=== PATIENT | male | born 1960 | race Caucasian/White ===

== ENCOUNTER → 2017-12-15 12:54 | Outpatient (CLI) | payer OTHER, SELFPAY ==
[2017-12-15 13:54] LABS: AST(SGOT) 22 U/L (15-37); Alanine Aminotransfer ALT/SGPT 31 U/L (16-61); Albumin, Serum 3.8 g/dL (3.2-5.0); Alkaline Phosphatase 67 U/L (45-117); Bilirubin, Direct 0.17 mg/dL (0.00-0.30); Cholesterol 207 mg/dL (200); Globulin 3.8 g/dL (2.2-4.2); High Density Lipoprotein 51 mg/dL; Protein, Total 7.6 g/dL (6.4-8.2); Triglycerides 136 mg/dL; Very Low Density Lipoprotein 27 mg/dL (5-40)
== END ==
PROVIDERS: Family Provider Family Medicine; PCP Family Medicine; Visit Provider Physician Assistant Medical
DX: E78.5 Hyperlipidemia, unspecified (principal); Z79.899 Other long term (current) drug therapy
CPT/HCPCS: 36415; 80061; 80076

== ENCOUNTER → 2018-03-04 07:41 | Outpatient (CLI) | payer OTHER, SELFPAY ==
[2018-03-04 08:22] LABS: AST(SGOT) 25 U/L (15-37); Alanine Aminotransfer ALT/SGPT 47 U/L (16-61); Albumin, Serum 3.7 g/dL (3.2-5.0); Alkaline Phosphatase 74 U/L (45-117); Bilirubin, Direct 0.26 mg/dL (0.00-0.30); Cholesterol 180 mg/dL (200); Globulin 3.7 g/dL (2.2-4.2); High Density Lipoprotein 46 mg/dL; Protein, Total 7.4 g/dL (6.4-8.2); Triglycerides 223 mg/dL; Very Low Density Lipoprotein 45 mg/dL (5-40)
== END ==
PROVIDERS: Family Provider Family Medicine; PCP Family Medicine; Referring Provider Internal Medicine Cardiovascular Disease; Visit Provider Internal Medicine Cardiovascular Disease
DX: E78.5 Hyperlipidemia, unspecified (principal)
CPT/HCPCS: 36415; 80061; 80076

== ENCOUNTER → 2018-05-11 07:35 | Outpatient (CLI) | payer OTHER, SELFPAY ==
[2017-12-17 16:14] VITALS: BMI 26.6
[2018-05-11 07:59] LABS: Hematocrit 47.9 % (40-54); Hemoglobin 16.4 g/dl (13.0-16.5); Mean Corp Hgb Conc 34.2 g/gl (32-36); Mean Corpuscular Hgb 29.2 pg (27.0-32.0); Mean Corpuscular Volume 85.4 fL (80-94); Mean Platelet Vol. 9.3 fl (6.2-12.0); Platelet Count 261 K/mm3 (150-450); RBC Distribution Width CV 12.7 % (11.6-14.6); RBC Distribution Width SD 39.4 fl (35.1-43.9); Red Blood Count 5.61 M/mm3 (4.6-6.2); White Blood Count 6.7 K/mm3 (4.4-11.0)
[2018-05-11 08:00] LABS: Scan Indicated on CBC? Y/N NO
[2018-05-11 08:20] LABS: ALB/GLOB Ratio 0.9 RATIO (0.9-2.4); AST(SGOT) 26 U/L (15-37); Alanine Aminotransfer ALT/SGPT 40 U/L (16-61); Albumin, Serum 3.7 g/dL (3.2-5.0); Alkaline Phosphatase 80 U/L (45-117); Anion Gap 7 (5-15); BUN 19 mg/dL (7-18); BUN/Creat Ratio 15.3 RATIO (10-20); Calcium,Total 8.9 mg/dL (8.5-10.1); Chloride 107 mmol/L (98-107); Cholesterol 215 mg/dL (200); Creatinine, Serum 1.24 mg/dL (0.70-1.30); EST Glomerular Filtration Rate 63 mL/min (>60); Est Glom Filt Rate - Afr Amer 77 mL/min (>60); Glucose 102 mg/dL (74-106); High Density Lipoprotein 48 mg/dL; Potassium 4.1 mmol/L (3.5-5.1); Protein, Total 7.7 g/dL (6.4-8.2); Sodium Level 142 mmol/L (136-145); Triglycerides 165 mg/dL; Very Low Density Lipoprotein 33 mg/dL (5-40)
== END ==
PROVIDERS: Family Provider Family Medicine; PCP Family Medicine; Referring Provider Nurse Practitioner Family; Visit Provider Nurse Practitioner Family
DX: I25.10 Atherosclerotic heart disease of native coronary artery without angina pectoris (principal); Z13.1 Encounter for screening for diabetes mellitus; Z13.220 Encounter for screening for lipoid disorders
CPT/HCPCS: 36415; 80053; 80061; 85027

== ENCOUNTER → 2019-01-21 | Outpatient (CLI) | payer OTHER, SELFPAY ==
[2017-12-17 16:14] VITALS: BMI 26.6
[2019-01-21 08:46] LABS: AST(SGOT) 24 U/L (15-37); Alanine Aminotransfer ALT/SGPT 39 U/L (16-61); Albumin, Serum 3.6 g/dL (3.2-5.0); Alkaline Phosphatase 75 U/L (45-117); Bilirubin, Direct 0.23 mg/dL (0.00-0.30); Cholesterol 197 mg/dL (200); Globulin 3.9 g/dL (2.2-4.2); High Density Lipoprotein 51 mg/dL; Protein, Total 7.5 g/dL (6.4-8.2); Triglycerides 148 mg/dL; Very Low Density Lipoprotein 30 mg/dL (5-40)
== END | disposition home or self-care (01) ==
LOC: LAB 07:33
PROVIDERS: Family Provider Family Medicine; PCP Family Medicine; Referring Provider Internal Medicine Cardiovascular Disease; Visit Provider Internal Medicine Cardiovascular Disease
DX: E78.5 Hyperlipidemia, unspecified (principal)
CPT/HCPCS: 36415; 80061; 80076

== ENCOUNTER → 2019-02-09 | Outpatient (CLI) | payer OTHER, SELFPAY ==
[2019-01-25 14:20] VITALS: BMI 26.9
--- NOTE | 2019-02-09 09:40 | ECHOD_ITS ---
Reason For Study: CAD/ASHD Procedure This was a 2D Doppler, Color Flow transthoracic echocardiogram. The study was technically difficult. Exam performed in department. Left Ventricle Normal LV size. Segmental dysfunction with preserved ejection fraction (see wall motion). The estimated ejection fraction is 55 %. No evidence for diastolic dysfunction. Mid-Inferior: Hypokinetic. Mid-inferoseptal : Hypokinetic. Mid-anteroseptal : Hypokinetic. Inferior [place] : Hypokinetic. Septal [place] : Hypokinetic. Right Ventricle Normal RV size. Normal systolic function. Atria The left atrium is mildly enlarged. Normal right atrium. No doppler evidence for ASD. Mitral Valve There is no mitral annular calcification. Mild diffuse mitral valve thickening. Mild (1+) mitral valve insufficiency. Tricuspid Valve Normal tricuspid valve. Mild to moderate (1-2+) tricuspid valve insufficiency. Right ventricular systolic pressure estimated to be 27 mmHg. Aortic Valve Trisinus/trileaflet aortic valve. Normal aortic valve. Pulmonic Valve The pulmonic valve is not well visualized. Trivial pulmonic valve insufficiency. Great Vessels Normal sized aortic root. Pericardium/Pleural No pericardial effusion. MMode/2D Measurements & Calculations LVIDd: 4.3 cm IVSd: 1.3 cm Ao root diam: 3.3 cm LVIDs: 3.6 cm LVPWd: 1.1 cm LA dimension: 4.5 cm RVDd: 3.7 cm FS: 17.2 % LAV(MOD-bp): 47.7 ml LA A4 area: 16.5 cm2 RA A4 area: 12.7 cm2 LAV(MOD-bp) Indexed: 24.7 ml/m2 LAV(MOD-sp2): 43.7 ml LAV(MOD-sp4): 48.2 ml Time Measurements MV dec time: 0.33 sec Doppler Measurements & Calculations MV E max edilberto: 56.9 cm/sec Lat Peak E' Edilberto: 7.6 cm/sec Med Peak E' Edilberto: 7.2 cm/sec MV A max edilberto: 61.1 cm/sec E/E' lat: 7.5 E/E' med: 7.9 MV E/A: 0.93 MV V2 max: 61.7 cm/sec MV P1/2t max edilberto: 51.8 cm/sec Ao V2 max: 78.9 cm/sec MV max P.5 mmHg MV P1/2t: 105.3 msec Ao max P.5 mmHg MV V2 mean: 33.1 cm/sec MV dec slope: 143.9 cm/sec2 MV mean P.51 mmHg MVA(P1/2t): 2.1 cm2 MV V2 VTI: 26.1 cm LV V1 max: 66.3 cm/sec PA V2 max: 111.7 cm/sec PI end-d edilberto: 91.5 cm/sec LV V1 max P.8 mmHg TR max edilberto: 241.1 cm/sec TR max P.3 mmHg Interpretation Summary The study was technically difficult. Segmental dysfunction with preserved ejection fraction (see wall motion). The estimated ejection fraction is 55 %. The left atrium is mildly enlarged. Mild diffuse mitral valve thickening. Mild (1+) mitral valve insufficiency. Mild to moderate (1-2+) tricuspid valve insufficiency. Trivial pulmonic valve insufficiency. Right ventricular systolic pressure estimated to be 27 mmHg. No evidence for diastolic dysfunction. Ordering Physician: Des Castano Referring Physician: MD Denise Ki Performed By: Esteban Hensley RCS
== END | disposition home or self-care (01) ==
LOC: CVS 09:39
PROVIDERS: Family Provider Family Medicine; PCP Family Medicine; Referring Provider Internal Medicine Cardiovascular Disease; Visit Provider Internal Medicine Cardiovascular Disease
DX: I25.10 Atherosclerotic heart disease of native coronary artery without angina pectoris (principal); R42 Dizziness and giddiness; I25.5 Ischemic cardiomyopathy; E78.5 Hyperlipidemia, unspecified; Z95.1 Presence of aortocoronary bypass graft
CPT/HCPCS: 93306

== ENCOUNTER 2019-12-19 18:56 | Observation (INO) | payer OTHER, SELFPAY ==
[2019-01-25 14:20] VITALS: BMI 26.9
[2019-12-19 18:56] VITALS: BP 174/106; PULSE 93; RESP 16; TEMP 36.8; O2SAT 96; BMI 26.6
--- NOTE | 2019-12-19 19:28 | EKG12_ITS ---
Test Reason : CHEST PAIN Blood Pressure : / mmHG Vent. Rate : 068 BPM Atrial Rate : 068 BPM P-R Int : 156 ms QRS Dur : 090 ms QT Int : 392 ms P-R-T Axes : 060 027 035 degrees QTc Int : 416 ms Normal sinus rhythm Normal ECG Confirmed by LV LANIER, KIMBERLEE ([id number]), market editor LAURA ESCAMILLA ([id number]) on 12/20/2019 2:45:57 PM Referred By: DEMAR Confirmed By:KIMBERLEE AWAN MD
--- NOTE | 2019-12-19 19:35 | RAD_ITS ---
STUDY: X-RAY CHEST REASON FOR EXAM: Male, 59 years old. CHEST PAIN. PT STATES HX OF 5 BYPASS SURGERIES TECHNIQUE: Single frontal view of the chest. COMPARISON: 10/22/2013 FINDINGS: There is no new focal consolidation. There is a stable granuloma at the left lung base. Sternal cerclage wires and vascular clips are present from a prior sternotomy and coronary artery bypass graft procedure (CABG). The cardiac silhouette is within normal limits. There are grossly stable calcified foci within the left hilar region consistent with calcified lymph nodes. Normal visualized pulmonary arteries. Normal visualized aortic arch and descending thoracic aorta. Normal visualized thoracic spine. Normal visualized ribs, clavicles, and shoulders. There is no demonstrated abnormality of the visualized soft tissue structures of the upper abdomen. RAD/Chest 1 View (Portable) IMPRESSION: No acute cardiopulmonary process. Electronically Signed: Aaliyah Perry MD at 19:49 EDT Tel , Service support ,
[2019-12-19] MEDS: Aspirin 81 MG TAB.CHEW 324 MG PO (19:42)
[2019-12-19 19:47] LABS: Absolute Lymphocyte Count 3.29 X10^3/uL (0.83-4.51); Absolute Neutrophil Count 4.1 X10^3/uL (2.0-7.7); Basophil# 0.04 X10^3/uL; Basophil% 0.5 % (0-1); Eosinophil# 0.23 X10^3/uL; Eosinophils% 2.8 % (0-5); Hematocrit 48.8 % (40-54); Hemoglobin 16.4 g/dL (13.0-16.5); Lymphocyte # 3.29 X10^3/ul (4.0); Lymphocyte % 39.7 % (19-41); Mean Corp Hgb Conc 33.6 g/dL (32-36); Mean Corpuscular Hgb 29.1 pg (27.0-32.0); Mean Corpuscular Volume 86.5 fL (80-94); Monocyte# 0.58 X10^3/uL; NRBC Flagged by Analyzer 0 % (0-5); Neutrophil # 4.13 X10^3/uL (2.7-7.7); Neutrophil % 49.8 % (47-70); Platelet Count 264 K/mm3 (150-450); RBC Distribution Width CV 12.6 % (11.6-14.6); RBC Distribution Width SD 39.5 fl (35.1-43.9); Red Blood Count 5.64 M/mm3 (4.6-6.2); White Blood Count 8.3 K/mm3 (4.4-11.0)
[2019-12-19 20:06] LABS: Anion Gap 6 (5-15); BUN 23 mg/dL (7-18); BUN/Creat Ratio 18.1 RATIO (10-20); Chloride 108 mmol/L (98-107); Creatinine, Serum 1.27 mg/dL (0.70-1.30); EST Glomerular Filtration Rate 61 mL/min (>60); Est Glom Filt Rate - Afr Amer 74 mL/min (>60); Estimated Creatinine Clearance 59.84 ml/min; Glucose 153 mg/dL (74-106); Potassium 3.3 mmol/L (3.5-5.1); Sodium Level 140 mmol/L (136-145)
--- NOTE | 2019-12-19 20:25 | PCM.HP.STD ---
Problem List (1) Chest pain Status: Acute Qualifiers: Chest pain type: unspecified Qualified Code(s): R07.9 - Chest pain, unspecified (2) Hypokalemia Status: Acute (3) Hyperglycemia Status: Acute (4) Hypertension Status: Chronic Qualifiers: Hypertension type: essential hypertension Qualified Code(s): I10 - Essential (primary) hypertension (5) Ischemic cardiomyopathy Status: Chronic (6) Hyperlipidemia Status: Chronic Qualifiers: Hyperlipidemia type: unspecified Qualified Code(s): E78.5 - Hyperlipidemia, unspecified (7) Aortocoronary bypass status Status: Chronic Comment: CABG x5- CORRAL to LAD, SVG to PDS, SVG to OM, SVG to Ramus, ALEX to distal RCA 10/26/13 @ [facility] (8) 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 transplanted heart: cahto heart Qualified Code(s): I25.10 - Atherosclerotic heart disease of [place] coronary artery without angina pectoris Comment: CABG x5- CORRAL to LAD, SVG to PDS, SVG to OM, SVG to Ramus, ALEX to distal RCA 10/26/13 @ [facility] History of Present Illness Date of Admission: 12/19/19 Chief Complaint: Chest pain The patient is a 59 y/o M w/ PMHx: CAD s/p CABG x 5, Valvular Heart Disease w/ Bicuspid AV, HTN, HLD, Ischemic cardiomyopathy who presents to the [facility] ED on 12/19/19 with history of onset of chest discomfort, left sided primarily underneath the left breast described as an aching, 4-6 out of 10 in severity with associated left upper extremity paresthesias with no associated dyspnea, diaphoresis, nausea or emesis starting on Friday morning and ongoing since then. He does note that he did significant heavy lifting over and Friday as his son is moving to [place]. He states that he has had 1-2 episodes at least over the last several months that have awoken him up at night with a left-sided chest discomfort but this usually resolved after 1 to 2 hours. He did not notify his documentation liaison about these episodes. Work-up in the ED included T 98.2, heart rate 93, BP 174/106, respiratory rate 16, 96% on room air, unremarkable CBC, BMP with potassium 3.3, BUN/creatinine 23/1.27, glucose 153 otherwise not marked appearing, troponin less than 0.015, chest x-ray with no acute cardiopulmonary findings, EKG w/ SR without acute evidence of ischemia. In the ED patient ministered aspirin 324 mg p.o. x1. Past Medical History Past Medical History (Chronic Problems): Chronic Problems (Last Reviewed 01/25/19 @ 14:21 by Annalisa Gusman) Hypertension (Chronic) Old myocardial infarction (Chronic) Ischemic cardiomyopathy (Chronic) Hyperlipidemia (Chronic) Aortocoronary bypass status (Chronic ~10/26/13) CABG x5- CORRAL to LAD, SVG to PDS, SVG to OM, SVG to Ramus, ALEX to distal RCA 10/26/13 @ [facility] Atherosclerotic heart disease of cahto coronary artery without angina pectoris (Chronic) CABG x5- CORRAL to LAD, SVG to PDS, SVG to OM, SVG to Ramus, ALEX to distal RCA 10/26/13 @ [facility] Medical History: Medical History (Last Reviewed 01/25/19 @ 14:21 by Annalisa Gusman) Bicuspid aortic valve (Acute) Q23.1 Old myocardial infarction (Chronic) I25.2 Ischemic cardiomyopathy (Chronic) I25.5 Hyperlipidemia (Chronic) E78.5 Atherosclerotic heart disease of [place]ht[place] coronary artery without angina pectoris (Chronic) I25.10 CABG x5- CORRAL to LAD, SVG to PDS, SVG to OM, SVG to Ramus, ALEX to distal RCA 10/26/13 @ [facility] Allergies atorvastatin [From Lipitor] Adverse Reaction (Severe, Verified 01/25/19 14:20) elevated LFT's Home Medications: Ambulatory Orders Medication Instructions Recorded Aspirin [Aspirin, Baby] 81 mg PO DAILY@0800 03/21/14 metoprolol tartrate 25 mg tablet 25 mg PO BID #180 tab 05/19/19 pravastatin 80 mg tablet 80 mg PO QHS #90 tab 08/09/19 clopidogrel 75 mg tablet 75 mg PO DAILY #90 tab 10/27/19 Surgical History: Surgical History (Last Reviewed 01/25/19 @ 14:21 by Annalisa Gusman) Aortocoronary bypass status (Chronic) Onset Date: ~10/26/13 Z95.1 CABG x5- CORRAL to LAD, SVG to PDS, SVG to OM, SVG to Ramus, ALEX to distal RCA 10/26/13 @ [facility] Surgical History: - - CABG x5 with CORRAL to LAD, SVG to PDS, SVG to OM, SVG to ramus, ALEX to distal RCA. Psychiatric History: No pertinent psych hx Lives: Spouse/ Significant Other Smoking Status: Never smoker Tobacco Use: Non-smoker Alcohol: None Drugs: None - *Family History Maternal Family History: Family History (Last Reviewed 01/25/19 @ 14:21 by Annalisa Gusman) Father Myocardial infarction, Onset Age: 43 Brother CAD (coronary artery disease) Brother CAD (coronary artery disease) History Items: - - Patient notes a maternal family history of ovarian cancer. He does note a maternal uncle who recently had heart surgery. Paternal Family History: Family History (Last Reviewed 01/25/19 @ 14:21 by Annalisa Gusman) Father Myocardial infarction, Onset Age: 43 Brother CAD (coronary artery disease) Brother CAD (coronary artery disease) History Items: - - Patient notes a paternal family history of heart disease/[place]. Sibling Family History: Family History (Last Reviewed 01/25/19 @ 14:21 by Annalisa Gusman) Father Myocardial infarction, Onset Age: 43 Brother CAD (coronary artery disease) Brother CAD (coronary artery disease) History Items: - - Patient notes a significant sibling history of coronary disease. Review of Systems Constitutional: Denies: Anorexia, Chills, Fever, Malaise, Weakness, Weight Change, Fatigue HEENT: Denies: Head Aches, Sinus Congestion, Sinus Drainage Cardiovascular: Reports: Chest Pain. Denies: Chest Pressure, Chest Tightness, Heaviness, Light Headedness, Orthopnea, Palpitations, Syncope Respiratory: Denies: Cough, Shortness of Breath, Shortness of breath at rest, Shortness of breath upon exertion, Sputum production Gastrointestinal: Denies: Abdominal Pain, Nausea, Vomiting Genitourinary: Denies: Dysuria Musculoskeletal: Denies: Joint Pain, Joint Tenderness Skin: Denies: Rash, Wounds Neurological: Reports: Numbness, Tingling. Denies: Focal weakness Psychiatric: Denies: Anxiety, Depression, Homicidal Ideations, Suicidal Ideations Hematologic/ Lymphatic: Reports: Easy Bruising, Easy Bleeding VTE Information - Inpt Only VTE Present on Admission: No VTE Mechan Device Prophylaxis: SCD's VTE Pharm Prophylaxis ordered?: Yes Patient Problems: Active and Suspected Problems (Last Reviewed 01/25/19 @ 14:21 by Annalisa Gusman) Chest pain (Acute) Hypokalemia (Acute) Hyperglycemia (Acute) Subjective: Patient seated upright in the ED bed, no acute distress, still notes ongoing left-sided chest pain/aching, unchanged. Objective: Physical Examination: General: awake, alert, oriented x 3 and cooperative, seated upright in the ED bed in no apparent distress. Skin: normal color, turgor, no icterus, cyanosis. HEENT: AT/NC, EOMI, PERRLA, MMM, no carotid bruits or JVD noted. Lungs: CTA bilaterally, moderate effort, mild decrease BL bases, no rales, ronchi or wheezing. Heart: regular rate and rhythm; no gallop, rub audible. Abdomen: soft, NTTP, ND, normal BS, no HSM. Extremities: no cyanosis, clubbing, or edema. Neurological: patient awake, alert, oriented x 3; cognitive function intact; pupils equally reactive to light and accomodation; cranial nerves II-XII grossly normal, moving all 4 extremities, no focal deficits, strength preserved. Psychiatric: affect appears normal, no acute evidence of depressive or anxiety feelings. - Physical Exam Vitals/I&O's: Vital Signs Temp Pulse Resp BP Pulse Ox 98.2 F 93 16 174/106 H 96 12/19/19 18:56 12/19/19 18:56 12/19/19 18:56 12/19/19 18:56 12/19/19 18:56 Oxygen Delivery Method Room Air Weight: 175 lb Body Mass Index (BMI) 26.6 Laboratory Results 12/19/19 19:05: WBC 8.3, RBC 5.64, Hgb 16.4, Hct 48.8, MCV 86.5, MCH 29.1, MCHC 33.6, RDW Std Deviation 39.5, RDW Coeff of Missy 12.6, Plt Count 264, MPV 10.0, Immature Gran % (Auto) 0.200, Neut % (Auto) 49.8, Lymph % (Auto) 39.7, Alexander % (Auto) 7.0, Eos % (Auto) 2.8, Baso % (Auto) 0.5, Absolute Neuts (auto) 4.1, Absolute Lymphs (auto) 3.29, Nucleated RBC % 0 12/19/19 19:05: Sodium 140, Potassium 3.3 L, Chloride 108 H, Carbon Dioxide 26.0, Anion Gap 6, BUN 23 H, Creatinine 1.27, Estim Creat Clear Calc 59.84, Est GFR (MDRD) Af Amer 74, Est GFR (MDRD) Non-Af 61, BUN/Creatinine Ratio 18.1, Glucose 153 H, Calcium 9.0, Troponin I < 0.015 Assessment/Plan All Active Problems (Last Reviewed 01/25/19 @ 14:21 by Annalisa Gusman) Chest pain (Acute) Hypokalemia (Acute) Hyperglycemia (Acute) Bicuspid aortic valve (Acute) The patient is a 59 y/o M w/ PMHx: CAD s/p CABG x 5, Valvular Heart Disease w/ Bicuspid AV, HTN, HLD, Ischemic cardiomyopathy who presents to the [facility] ED on 12/19/19 with history of onset of chest discomfort, left sided primarily underneath the left breast described as an aching, 4-6 out of 10 in severity with associated left upper extremity paresthesias. 1. Chest Pain: EKG in ED with SR without acute evidence of ischemia, CXR w/ no acute cardiopulmonary findings, initial trop less than 0.015. Will admit to PCU, place on a monitored bed to assure no acute myocardial infarction with serial cardiac enzymes and EKGs. If repeat EKG and serial cardiac enzymes remain unremarkable will pursue a.m. cardiac stress testing. FLP in AM. Mag pending. ASA, NG, morphine. 2. Hypokalemia: Admission K+ 3.3, magnesium level requested, supplementation given, repeat level in AM. 3. Hyperglycemia: Admission glucose 153, will obtain hemoglobin A1c. 4. CAD: s/p CABG x 5, CORRAL-LAD, SVG-PDS, SVG-OM, SVG to ramus, ALEX to Distal RCA 10/26/13 [facility], will continue aspirin, Plavix, metoprolol, statin therapy. 5. ? Valvular heart disease: Noted history of bicuspid aortic valve in the records however most recent echo notes trisinus/trileaflet aortic valve normal-appearing, following with Dr. Castano, most recent echocardiogram 02/09/2019 with EF 55%, mildly enlarged LA, mild diffuse MV thickening, mild MVI, mild to moderate TBI, RVSP 27 mmHg with normal-appearing aortic valve. 6. Hypertension: Continue home regimen including metoprolol with further adjustments as needed and hold parameters, PRN hydralazine. 7. Hyperlipidemia: Continue home statin regimen. AM FLP. 8. DVT prophylaxis: SCDs, Lovenox. OBSV E&M: [id number] Initial observation care L3
--- NOTE | 2019-12-19 20:33 | ED.DCSUM_ITS ---
- ER Visit Summary Date of Service: 12/19/19 Chief Complaint: Chest pain History of Present Illness: The patient is a 59 M with left-sided chest pain that radiates into his axilla and arm. He does have some tingling down his left arm. Symptoms started yesterday. He was helping his son move the day before that. He thought he may have pulled a muscle, but he had continued pain. He also has been waking up at night with similar symptoms. He will take aspirin and typically the pain will go away, but this pain was not going away. History of coronary disease and bypass. He takes aspirin and Plavix. Denies any history of aortic disease, DVT, or PE. Physical Examination: Hypertensive but otherwise vitals unremarkable. Heart regular. Lungs clear. Extremities nontender with no edema. Normal strength and sensation. Test Results: EKG shows sinus rhythm at a rate of 68. CBC normal. Potassium 3.3, chloride 108, glucose 153, troponin normal, chest x-ray normal. Emergency Department Course and Treatment: Patient treated with aspirin and placed on the monitor. EKG and labs as above. Chest x-ray as above. Given his history of coronary disease, chest pain, age, risk factors, he will be admitted for further care. Treatment Plan: As above Disposition: PCU observation Impression: Chest pain, coronary disease, hypertension, hyperlipidemia This note was generated with [employer] dictation software. It may contain incorrect words, spelling, and punctuation that were not noted in review of the chart prior to signing ED Disposition - Plan for ED Patient: Referrals: Ki Walker MD [Primary Care Provider] -
[2019-12-19 20:58] VITALS: BP 141/85; PULSE 56; RESP 18; RESP 19; TEMP 36.7; O2SAT 94; O2SAT 95
--- NOTE | 2019-12-19 21:53 | EKG12_ITS ---
Test Reason : Blood Pressure : / mmHG Vent. Rate : 053 BPM Atrial Rate : 053 BPM P-R Int : 162 ms QRS Dur : 096 ms QT Int : 432 ms P-R-T Axes : 005 022 035 degrees QTc Int : 405 ms Sinus bradycardia Otherwise normal ECG When compared with ECG of 22-OCT-2013 16:53, Vent. rate has decreased BY 56 BPM Criteria for Inferior infarct are no longer Present Confirmed by REGINO GRANADOS ([id number]), medical transcription editor LAURA ESCAMILLA ([id number]) on 12/27/2019 10:02:45 AM Referred By: Confirmed By:REGINO GRANADOS
[2019-12-19 21:55] VITALS: BMI 27.4
[2019-12-19 22:00] VITALS: BP 157/85; PULSE 57; RESP 12; TEMP 37; O2SAT 95; BMI 27.5
[2019-12-19 22:02] VITALS: PULSE 60
[2019-12-19 22:09] LABS: Magnesium 2.2 mg/dL (1.6-2.6)
[2019-12-19] MEDS: Famotidine 20 MG Tablet PO (22:34)
[2019-12-20 02:59] VITALS: PULSE 59
[2019-12-20 03:11] VITALS: BP 138/78; PULSE 53; RESP 16; TEMP 36.7; O2SAT 99
[2019-12-20 05:47] LABS: Absolute Lymphocyte Count 2.32 X10^3/uL (0.83-4.51); Absolute Neutrophil Count 3.1 X10^3/uL (2.0-7.7); Basophil# 0.03 X10^3/uL; Basophil% 0.5 % (0-1); Eosinophil# 0.16 X10^3/uL; Eosinophils% 2.6 % (0-5); Hematocrit 47.6 % (40-54); Hemoglobin 16.1 g/dL (13.0-16.5); Lymphocyte # 2.32 X10^3/ul (4.0); Lymphocyte % 38.3 % (19-41); Mean Corp Hgb Conc 33.8 g/dL (32-36); Mean Corpuscular Hgb 29.3 pg (27.0-32.0); Mean Corpuscular Volume 86.7 fL (80-94); Mean Platelet Vol. 9.4 fl (6.2-12.0); Monocyte# 0.44 X10^3/uL; Monocyte% 7.3 % (0-10); NRBC Flagged by Analyzer 0 % (0-5); Neutrophil # 3.08 X10^3/uL (2.7-7.7); Platelet Count 220 K/mm3 (150-450); RBC Distribution Width CV 12.7 % (11.6-14.6); RBC Distribution Width SD 39.9 fl (35.1-43.9); Red Blood Count 5.49 M/mm3 (4.6-6.2); White Blood Count 6.1 K/mm3 (4.4-11.0)
--- NOTE | 2019-12-20 05:55 | EKG12_ITS ---
Test Reason : Blood Pressure : / mmHG Vent. Rate : 054 BPM Atrial Rate : 054 BPM P-R Int : 152 ms QRS Dur : 092 ms QT Int : 438 ms P-R-T Axes : 008 022 024 degrees QTc Int : 415 ms Sinus bradycardia Otherwise normal ECG When compared with ECG of 19-DEC-2019 22:21, MANUAL COMPARISON REQUIRED, DATA IS UNCONFIRMED Confirmed by REGINO GRANADOS ([id number]), subeditor LAURA ESCAMILLA ([id number]) on 12/27/2019 10:03:10 AM Referred By: Confirmed By:REGINO GRANADOS
[2019-12-20 06:04] LABS: AST(SGOT) 21 U/L (15-37); Alanine Aminotransfer ALT/SGPT 35 U/L (16-61); Albumin, Serum 3.6 g/dL (3.2-5.0); Alkaline Phosphatase 61 U/L (45-117); Anion Gap 4 (5-15); BUN 19 mg/dL (7-18); BUN/Creat Ratio 16.8 RATIO (10-20); Calcium,Total 8.5 mg/dL (8.5-10.1); Chloride 108 mmol/L (98-107); Cholesterol 201 mg/dL (200); Creatinine, Serum 1.13 mg/dL (0.70-1.30); EST Glomerular Filtration Rate 70 mL/min (>60); Est Glom Filt Rate - Afr Amer 85 mL/min (>60); Estimated Creatinine Clearance 67.26 ml/min; Globulin 3.7 g/dL (2.2-4.2); Glucose 91 mg/dL (74-106); High Density Lipoprotein 50 mg/dL; Protein, Total 7.3 g/dL (6.4-8.2); Sodium Level 140 mmol/L (136-145); Triglycerides 159 mg/dL; Very Low Density Lipoprotein 32 mg/dL (5-40)
[2019-12-20 06:37] VITALS: BP 149/79; PULSE 57; RESP 18; TEMP 36.2; O2SAT 95
[2019-12-20] MEDS: Aspirin 81 MG TAB.CHEW PO (06:41)
[2019-12-20] MEDS: Clopidogrel Bisulfate 75 MG Tablet PO (06:41)
[2019-12-20 07:00] VITALS: PULSE 56
[2019-12-20 07:40] LABS: Hemoglobin A1c 5.2 % (3.8-5.6)
[2019-12-20 11:21] VITALS: BP 130/85; PULSE 78; RESP 16; TEMP 36.6; O2SAT 96
[2019-12-20 11:23] VITALS: PULSE 78
[2019-12-20] MEDS: Famotidine 20 MG Tablet PO (11:23)
[2019-12-20] MEDS: Metoprolol Tartrate 25 MG Tablet PO (11:23)
--- NOTE | 2019-12-20 11:25 | STRESSREP_ITS ---
Stress Test Report Exercise myocardial perfusion stress test. 59-year-old man with a history of coronary artery bypass surgery, aortic valve replacement, maze procedure, who presents with chest pain. Stress protocol: Resting EKG demonstrates normal sinus rhythm with a rate of 63 bpm normal intervals are noted resting blood pressure is 146/78 mmHg. The patient exercised according to regular Luis F protocol for a total duration of 6 minutes and 30 seconds. The maximum heart rate attained was 160 bpm which was 100% of maximum predicted heart rate the maximum workload was 7.7 metabolic equivalents. Patient completed 30 seconds into stage III of the Luis F protocol. At rest there were no ST or T wave changes noted suggest ischemia at peak exercise up sloping ST changes only were noted with no meet the cranial criteria for ischemia. The test was terminated due to target heart rate being achieved as well as knee pain. No chest pain was noted. Myocardial perfusion protocol. 12.0 mCi of technetium 99m sestamibi was injected at rest. The patient exercised according to regular Luis F protocol for 6-1/2 minutes and at peak exercise 36.0 mCi of technetium 99m sestamibi was injected stress images were obtained stress and rest images were reconstructed and compared in the short axis vertical and horizontal long axis. Gated images were also obtained per Perfusion SPECT analysis: Review of the stress images demonstrate normal uptake of tracer noted in all areas of the myocardium the resting images similarly demonstrate normal uptake of tracer noted in all areas of the myocardium. No areas of reversibility are noted suggest ischemia no previous infarct is noted. Gated SPECT analysis: The gated ejection fraction is noted to be 61%. Conclusion: Normal exercise myocardial perfusion stress test at a moderate workload No ischemia noted. Preserved ejection fraction.
--- NOTE | 2019-12-20 11:38 | DCINST_ITS ---
- Discharge Diagnoses Current Active Problems: Current Active and Chronic Problems (Last Reviewed 01/25/19 @ 14:21 by Annalisa Gusman) Chest pain (Acute) Hypertension (Chronic) Hypokalemia (Acute) Hyperglycemia (Acute) Reason(s) for Visit for Discharge Instructions: Chest pain You will use the following diet at home:: Cardiac Your food should be the consistency of: Regular Your liquids should be the consistency of: Regular/Thin Discharge Activity: Return to Normal Activity Additional Instructions: Continue to take all your medications as prescribed. Follow-up with your primary care doctor and communications project lead within 2 weeks. You can take Tylenol as needed for pain. You would need repeat blood work in a week with your primary care doctor to follow-up on your kidney function. Allergies/Adverse Reactions: Allergies atorvastatin [From Lipitor] Adverse Reaction (Severe, Verified 01/25/19 14:20) elevated LFT's Medications to take at Discharge Aspirin [Aspirin, Baby] 81 mg PO DAILY@0800 03/21/14 metoprolol tartrate 25 mg tablet 25 mg PO BID #180 tab 05/19/19 pravastatin 80 mg tablet 80 mg PO QHS #90 tab 08/09/19 clopidogrel 75 mg tablet 75 mg PO DAILY #90 tab 10/27/19 Primary Care Physician: Ki Walker MD [Primary Care Provider] - Please follow up with your Primary Care Physician in: within 1-2 weeks Test Results: Test results from this visit will be discussed in further detail at your follow- up appointment, if applicable. Please Follow Up With: Des Castano MD When: in 2 weeks Proposed Discharge Date: 12/20/19
--- NOTE | 2019-12-20 11:39 | PCM.DC.SUM ---
Discharge Date and Diagnosis Date of Admission: 12/19/19 Date of Discharge: 12/20/19 - Primary Discharge Diagnosis Acute Problems: Active Problems (Last Reviewed 01/25/19 @ 14:21 by Annalisa Gusman) Chest pain (Acute) Hypokalemia (Acute) - Secondary Discharge Diagnosis Chronic Problems: Chronic Problems (Last Reviewed 01/25/19 @ 14:21 by Annalisa Gusman) Hypertension (Chronic) Old myocardial infarction (Chronic) Ischemic cardiomyopathy (Chronic) Hyperlipidemia (Chronic) Aortocoronary bypass status (Chronic ~10/26/13) CABG x5- CORRAL to LAD, SVG to PDS, SVG to OM, SVG to Ramus, ALEX to distal RCA 10/26/13 @ [facility] Atherosclerotic heart disease of [place] coronary artery without angina pectoris (Chronic) CABG x5- CORRAL to LAD, SVG to PDS, SVG to OM, SVG to Ramus, ALEX to distal RCA 10/26/13 @ [facility] Hospital Course and Treatment Imaging Results: 12/20/19 05:55 Nuclear Stress Test - Treadmil [NM] AM (NON MEDS) Clinical Impression(s) from Imaging Studies Chest X-Ray 12/19/19 19:35 IMPRESSION: No acute cardiopulmonary process. Electronically Signed: Aaliyah Perry MD at 19:49 EDT Tel , Service support , None Operations: None Procedures: Stress test Summary of Care Provided: The patient is a 59 year old M with past medical history of CAD status post CABG, valvular heart disease with bicuspid aortic valve, hypertension, hyperlipidemia who comes in with left-sided chest pain that has been going on and off but persistent since 2 days prior to admission. Patient admitted to helping his son move by lifting some heavy boxes. His initial vitals in the ED was stable except for some uncontrolled blood pressure. Admitting blood work was unremarkable. EKG with no ST segment changes. Patient's troponins remain negative. He underwent a stress test that was negative. His potassium was replaced during the hospital stay. Repeat potassium was 4.0. Patient was advised to follow-up with his primary care doctor within a week for repeat BMP. He would also follow-up with his intel analyst in 2 weeks. Subjective: On the day of discharge, patient was seen and examined. Denied any new complaint. - Physical Exam Vitals/I&O's: Vital Signs Temp Pulse Resp BP Pulse Ox 97.8 F 78 16 130/85 H 96 12/20/19 11:21 12/20/19 11:23 12/20/19 11:21 12/20/19 11:21 12/20/19 11:21 Oxygen Delivery Method Room Air Weight: 82 kg Body Mass Index (BMI) 27.4 Intake and Output for Last 24 Hours 12/18/19 12/19/19 12/20/19 23:59 23:59 23:59 Intake Total 100 / 100 Balance 100 / 100 General: Alert, Oriented x3, Cooperative, No apparent distress HEENT: Atraumatic, PERRLA, EOMI, Normocephalic Oral: Moist Mucosa Neck: Supple Lungs: Clear to auscultation, Normal air movement Cardiovascular: Regular rate, Regular Rhythm, Normal S1, Normal S2, No murmurs Abdomen: Bowel Sounds Present, Soft, Non Tender, Non-Distended, No Hepato-splenomegaly Extremities: No edema Skin: No rashes, No breakdown Musculoskeletal: No Tenderness to Palpation of Joints or Extremities Lymphatic: No Cervical, Supraclavicular, or Inguinal Adenopathy Neurological: Cranial nerves II-XII grossly intact, Neuro grossly intact Psych/Mental Status: Normal Affect, Appropriate Laboratory Results 12/19/19 19:05: WBC 8.3, RBC 5.64, Hgb 16.4, Hct 48.8, MCV 86.5, MCH 29.1, MCHC 33.6, RDW Std Deviation 39.5, RDW Coeff of Missy 12.6, Plt Count 264, MPV 10.0, Immature Gran % (Auto) 0.200, Neut % (Auto) 49.8, Lymph % (Auto) 39.7, Pet[place] % (Auto) 7.0, Eos % (Auto) 2.8, Baso % (Auto) 0.5, Absolute Neuts (auto) 4.1, Absolute Lymphs (auto) 3.29, Nucleated RBC % 0 12/19/19 19:05: Sodium 140, Potassium 3.3 L, Chloride 108 H, Carbon Dioxide 26.0, Anion Gap 6, BUN 23 H, Creatinine 1.27, Estim Creat Clear Calc 59.84, Est GFR (MDRD) Af Amer 74, Est GFR (MDRD) Non-Af 61, BUN/Creatinine Ratio 18.1, Glucose 153 H, Calcium 9.0, Troponin I < 0.015 12/19/19 19:05: Magnesium 2.2 12/19/19 22:15: Troponin I < 0.015 12/20/19 01:17: Troponin I < 0.015 12/20/19 05:35: WBC 6.1, RBC 5.49, Hgb 16.1, Hct 47.6, MCV 86.7, MCH 29.3, MCHC 33.8, RDW Std Deviation 39.9, RDW Coeff of Missy 12.7, Plt Count 220, MPV 9.4, Immature Gran % (Auto) 0.300, Neut % (Auto) 51.0, Lymph % (Auto) 38.3, [place] % (Auto) 7.3, Eos % (Auto) 2.6, Baso % (Auto) 0.5, Absolute Neuts (auto) 3.1, Absolute Lymphs (auto) 2.32, Nucleated RBC % 0 12/20/19 05:35: Sodium 140, Potassium 4.0, Chloride 108 H, Carbon Dioxide 28.0, Anion Gap 4 L, BUN 19 H, Creatinine 1.13, Estim Creat Clear Calc 67.26, Est GFR (MDRD) Af Amer 85, Est GFR (MDRD) Non-Af 70, BUN/Creatinine Ratio 16.8, Glucose 91, Calcium 8.5, Total Bilirubin 0.90, AST 21, ALT 35, Alkaline Phosphatase 61, Total Protein 7.3, Albumin 3.6, Globulin 3.7, Albumin/Globulin Ratio 1.0, Triglycerides 159, Cholesterol 201 H, LDL Cholesterol 119, VLDL Cholesterol 32, HDL Cholesterol 50 12/20/19 05:35: Hemoglobin A1c 5.2 Current Medications Acetaminophen (Tylenol) 650 mg PO Q6H PRN PRN PRN Reason: Pain Score 1-10/Temp > 100.7 F Al Hydroxide/Mg Hydroxide (Mylanta Ii) 30 ml PO Q6H PRN PRN PRN Reason: Gastric Burning Albuterol Sulfate (Ventolin Aerosols) 2.5 mg INHALATION Q2H PRN PRN PRN Reason: Dyspnea, wheezing Aspirin (Aspirin, Baby) 81 mg PO DAILY@0800 [facility] Last Admin: 12/20/19 06:41 Dose: 81 mg Documented by: Clopidogrel Bisulfate (Plavix) 75 mg PO DAILY [facility] Last Admin: 12/20/19 06:41 Dose: 75 mg Documented by: Enoxaparin Sodium (Lovenox) 40 mg SC DAILY [facility] Famotidine (Pepcid) 20 mg PO BID [facility] Last Admin: 12/20/19 11:23 Dose: 20 mg Documented by: Guaifenesin (Robitussin) 20 ml PO Q4H PRN PRN PRN Reason: COUGH Hydralazine HCl (Apresoline Iv) 10 mg IV Q4H PRN PRN PRN Reason: SBP > 160 Magnesium Hydroxide (Milk Of Magnesia) 30 ml PO DAILY PRN PRN PRN Reason: Constipation Melatonin (Melatonin) 3 mg PO QHS PRN PRN PRN Reason: INSOMNIA Metoprolol Tartrate (Lopressor (Beta Jewels)) 25 mg PO BID [facility] Last Admin: 12/20/19 11:23 Dose: 25 mg Documented by: Morphine Sulfate () 2 mg IV Q3H PRN PRN PRN Reason: Pain Score 6-10/10 Nitroglycerin (Nitrostat) 0.4 mg SUBLINGUAL Q5M PRN PRN Reason: CARDIAC/CHEST PAIN Ondansetron HCl (Zofran) 4 mg IV Q8H PRN PRN PRN Reason: NAUSEA/VOMITING Oxycodone HCl (Oxyir) 5 mg PO Q4H PRN PRN PRN Reason: Pain Score 4-5/10 Pravastatin Sodium (Pravachol) 80 mg PO QHS [facility] Last Admin: 12/19/19 22:35 Dose: Not Given Documented by: Prochlorperazine Edisylate (Compazine Iv) 5 mg IV Q4H PRN PRN PRN Reason: Breakthrough Nausea/Vomiting Psyllium Hydrophilic Mucilloid (Metamucil) 1 packet PO DAILY PRN PRN PRN Reason: Constipation Senna/Docusate Sodium (Senokot-S, Marry-Colace) 2 tablet PO BID PRN PRN PRN Reason: Constipation Sodium Chloride () 10 - 40 ml IV UD PRN PRN Reason: SALINE FLUSH Throat Lozenges (Cepacol Sore Throat Lozenge) 1 lozenge MUCOUS MEM Q2H PRN PRN PRN Reason: SORE THROAT Discharge Diet: Low fat/ Low Cholesterol, 2000 mg Sodium Diet Discharge Activity: Return to Normal Activity Home Medications: Medications to take at Discharge Aspirin [Aspirin, Baby] 81 mg PO DAILY@0800 03/21/14 metoprolol tartrate 25 mg tablet 25 mg PO BID #180 tab 05/19/19 pravastatin 80 mg tablet 80 mg PO QHS #90 tab 08/09/19 clopidogrel 75 mg tablet 75 mg PO DAILY #90 tab 10/27/19 Primary Care Physician: Ki Walker MD [Primary Care Provider] - Please follow up with your Primary Care Physician in: within 1-2 weeks Please Follow Up With: Des Castano MD When: in 2 weeks Disposition: Home Minutes spent on discharge:: 40 Patient Condition:: Stable Medical Necessity - Tobacco Use Smoking Status: Never smoker Tobacco Use: Non-smoker Meaningful Use Info Meaningful Use Diagnoses (Choose all that apply): None applicable OBSV E&M: 55490 Observation care discharge
== END 2019-12-20 11:36 | disposition home or self-care (01) ==
LOC: ED 19:37 → PCU 20:39
PROVIDERS: Admitting Provider Family Medicine; Emergency Provider Emergency Medicine; PCP Family Medicine; Visit Provider Internal Medicine
DX: R07.89 Other chest pain (principal); I10 Essential (primary) hypertension; E78.5 Hyperlipidemia, unspecified; I25.10 Atherosclerotic heart disease of native coronary artery without angina pectoris; I25.5 Ischemic cardiomyopathy; E87.6 Hypokalemia; R73.9 Hyperglycemia, unspecified; I25.2 Old myocardial infarction; Z79.899 Other long term (current) drug therapy; Z79.02 Long term (current) use of antithrombotics/antiplatelets; Z95.1 Presence of aortocoronary bypass graft; Z79.82 Long term (current) use of aspirin; Q23.1 Congenital insufficiency of aortic valve
CPT/HCPCS: 36415; 71045; 78452; 80048; 80053; 80061; 83036; 83735; 84484; 85025; 93005; 93017; 99218; 99285; A9500; A4216; G0378

== ENCOUNTER 2020-05-07 09:11 | Emergency (ER) | payer OTHER, SELFPAY ==
[2020-01-17 14:19] VITALS: BMI 27.3
[2020-05-07 09:13] VITALS: BP 128/94; PULSE 121; RESP 17; TEMP 37.1; O2SAT 94; BMI 27.8
--- NOTE | 2020-05-07 09:33 | EKG12_ITS ---
Test Reason : FEVER Blood Pressure : / mmHG Vent. Rate : 101 BPM Atrial Rate : 101 BPM P-R Int : 152 ms QRS Dur : 088 ms QT Int : 340 ms P-R-T Axes : 067 017 035 degrees QTc Int : 440 ms Sinus tachycardia Otherwise normal ECG Confirmed by LV LANIER, KIMBERLEE ([id number]), editor managing newspaper JEFFERSON HOLCOMB ([id number]) on 05/09/2020 8:56:25 AM Referred By: MICHELLE Confirmed By:KIMBERLEE AWAN MD
--- NOTE | 2020-05-07 09:33 | CT_ITS ---
STUDY: CT ABDOMEN AND PELVIS WITH CONTRAST REASON FOR EXAM: Male, 60 years old. Right lower quadrant Pain, Fever, Burning With Urination. RADIATION DOSAGE (If Supplied By Facility): CTDIvol = ( 10.52 ) mGy, DLP = ( 832.75 ) mGycm TECHNIQUE: Transaxial images were obtained from the dome of the diaphragm to the symphysis pubis without oral contrast. Oral and amp; IV Gastrografin and amp; 100mL Isovue-370 was administered. Sagittal and coronal images were reconstructed. Individualized dose optimization techniques were used for this CT. COMPARISON: None. FINDINGS: The visualized portions of lung bases demonstrate mild atelectatic changes. There is calcified granuloma in the lingula. The visualized portions of the heart are within normal limits. Normal liver. Normal gallbladder and extrahepatic biliary system. Normal spleen. Normal pancreas. Normal bilateral adrenal glands. Normal right kidney. Normal left kidney. Normal visualized stomach. Normal small intestine. Normal colon. The appendix is visualized and appears normal. Mild atherosclerotic calcifications of the abdominal aorta without evidence of aneurysm. Normal inferior vena cava. Normal retroperitoneum. Thickening of the bladder wall could be due to underdistention. Cystitis cannot be excluded. Prominent prostate. There is a small umbilical hernia containing fat. No demonstrated acute osseous changes. CT/Abdomen/Pelvis WITH Contrast IMPRESSION: 1. No evidence of hydronephrosis or urinary tract stones. 2. No evidence of acute appendicitis. 3. Thickening of the bladder may be due to underdistention. Cystitis cannot be excluded. 4. Prominent prostate. Electronically Signed: Ron Schaeffer MD at 12:57 EST Tel , Service support ,
--- NOTE | 2020-05-07 09:33 | RAD_ITS ---
STUDY: X-RAY CHEST REASON FOR EXAM: Male, 60 years old. Fever, REDDY, chills -- x 3 days TECHNIQUE: Single AP portable view of the chest. COMPARISON: 12/19/2019. FINDINGS: Calcified granuloma in the left lung base. No new infiltrate is seen. There is no demonstrated pleural abnormality. Sternal cerclage wires and vascular clips are present from a prior sternotomy and coronary artery bypass graft procedure (CABG). Normal cardiac silhouette. Normal mediastinum and nany. Normal visualized pulmonary arteries. Normal visualized aortic arch and descending thoracic aorta. Stable osseous structures. There is no demonstrated abnormality of the visualized soft tissue structures of the upper abdomen. RAD/Chest 1 View (Portable) IMPRESSION: No active pulmonary disease. Electronically Signed: Ron Schaeffer MD at 12:28 EST Tel , Service support ,
--- NOTE | 2020-05-07 09:35 | ED.VIS.GEN ---
History of Present Illness Chief Complaint: Fever Informant: Patient Onset: Days Context: Gradual Onset Current Severity: Mild Maximum Severity: Moderate Narrative: Patient presents from urgent care secondary to fever, dysuria, fast heart rate. Patient states on the morning of May 05 he woke up with a temperature of 103. He had dysuria and lower abdominal pain along with a headache. He has had mild cough. He states dysuria has improved but not completely resolved. On exam at the urgent care patient had significant tenderness in the right lower quadrant on exam and heart rate was noted to be in the 120s. - Past Medical History (1) Bicuspid aortic valve Status: Chronic (2) Aortocoronary bypass status Status: Chronic Comment: CABG x5- CORRAL to LAD, SVG to PDS, SVG to OM, SVG to Ramus, ALEX to distal RCA 10/26/13 @ [facility] (3) Hyperlipidemia Status: Chronic (4) Hypertension Status: Chronic (5) Ischemic cardiomyopathy Status: Chronic Past Medical History - Allergies and Home Meds Allergies/Adverse Reactions: Allergies atorvastatin [From Lipitor] Adverse Reaction (Severe, Verified 05/07/20 09:13) elevated LFT's Primary Care Physician: Ki Walker MD [Primary Care Provider] - Prior records reviewed: Yes Surgical History: - - CABG x5 with CORRAL to LAD, SVG to PDS, SVG to OM, SVG to ramus, ALEX to distal RCA. Lives: Spouse/ Significant Other Smoking Status: Never smoker - Family History Maternal Family History: Family History (Last Reviewed 01/17/20 @ 14:21 by Annalisa Gusman) Father Myocardial infarction, Onset Age: 43 Brother CAD (coronary artery disease) Brother CAD (coronary artery disease) Family History: Reports: - - Patient notes a maternal family history of ovarian cancer. He does note a maternal uncle who recently had heart surgery. Paternal Family History: Family History (Last Reviewed 01/17/20 @ 14:21 by Annalisa Gusman) Father Myocardial infarction, Onset Age: 43 Brother CAD (coronary artery disease) Brother CAD (coronary artery disease) Family History: Reports: - - Patient notes a paternal family history of heart disease/NM. Sibling Family History: Family History (Last Reviewed 01/17/20 @ 14:21 by Annalisa Gusman) Father Myocardial infarction, Onset Age: 43 Brother CAD (coronary artery disease) Brother CAD (coronary artery disease) Family History: Reports: - - Patient notes a significant sibling history of coronary disease. Review of Systems General: Reports: Fever Eyes: Denies: Visual changes - bilaterally ENT: Denies: Bilateral ear pain, Sore throat Cardiovascular: Denies: Chest pain Respiratory: Reports: Cough. Denies: Dyspnea, Sputum Gastrointestinal: Reports: Abdominal pain, Diarrhea - X1 episode. Denies: Nausea, Vomiting Genitourinary: Reports: Dysuria Musculoskeletal: Denies: Swelling, Extremity Pain Skin: Denies: Rash Neurological: Reports: Headache Hematologic: Denies: Easy bruising, Easy bleeding Allergy: Denies: Uticaria Physical Exam Vital Signs/Narrative: Vital Signs Temp Pulse Resp BP Pulse Ox 05/07/20 09:13 98.8 F 121 H 17 128/94 H 94 Inital Vital Signs reviewed: Yes General: Well nourished, Well developed Head: Normocephalic ENT: Moist mucous membranes Neck: Supple Cardiovascular: Regular rhythm, Tachycardia Respiratory: No distress, CTA bilaterally Abdomen: Soft, Tender - Tenderness and guarding in the right lower quadrant., Guarding, Hypoactive bowel sounds Skin: Normal color Neurological: Alert, Oriented x3 Psychological: Normal affect Diagnostic/Tx/Re-eval Chest X-Ray - ED: 1 View, Read by ED Physician, Normal, Heart, Lungs, Mediastinum Impressions Abdomen/Pelvis CT 05/07/20 09:33 IMPRESSION: 1. No evidence of hydronephrosis or urinary tract stones. 2. No evidence of acute appendicitis. 3. Thickening of the bladder may be due to underdistention. Cystitis cannot be excluded. 4. Prominent prostate. Electronically Signed: Ron Schaeffer MD at 12:57 EST Tel , Service support , Chest X-Ray 05/07/20 09:33 IMPRESSION: No active pulmonary disease. Electronically Signed: Ron Schaeffer MD at 12:28 EST Tel , Service support , 05/07/20 09:33 Abdomen/Pelvis WITH Contrast [CT] Stat Chest 1 View (Portable) [RAD] Stat 05/07/20 09:50 Mucosa - Nose SARS-CoV-2 Antigen (Rapid) - Final Laboratory Results 05/07/20 05/07/20 05/07/20 09:45 09:45 09:45 WBC 7.4 RBC 5.35 Hgb 15.6 Hct 45.5 MCV 85.0 MCH 29.2 MCHC 34.3 RDW Std Deviation 38.5 RDW Coeff of Missy 12.6 Plt Count 259 MPV 9.3 Immature Gran % (Auto) 0.500 Neut % (Auto) 76.5 H Lymph % (Auto) 14.3 L [place] % (Auto) 7.1 Eos % (Auto) 1.2 Baso % (Auto) 0.4 Absolute Neuts (auto) 5.7 Absolute Lymphs (auto) 1.06 Nucleated RBC % 0 Sodium 138 Potassium 3.4 L Chloride 107 Carbon Dioxide 26.0 Anion Gap 5 BUN 14 Creatinine 1.25 Estim Creat Clear Calc 60.04 Est GFR (MDRD) Af Amer 76 Est GFR (MDRD) Non-Af 62 BUN/Creatinine Ratio 11.2 Glucose 138 H Lactic Acid 1.4 Calcium 8.9 Urine Color Urine Clarity Urine pH Ur Specific [place] Urine Protein Urine Glucose (UA) Urine Ketones Urine Occult Blood Urine Nitrite Urine Bilirubin Urine Urobilinogen Ur Leukocyte Esterase Urine RBC Urine WBC Ur Squamous Epith Cells Urine Bacteria Urine Mucus 05/07/20 10:40 WBC RBC Hgb Hct MCV MCH MCHC RDW Std Deviation RDW Coeff of Missy Plt Count MPV Immature Gran % (Auto) Neut % (Auto) Lymph % (Auto) [place] % (Auto) Eos % (Auto) Baso % (Auto) Absolute Neuts (auto) Absolute Lymphs (auto) Nucleated RBC % Sodium Potassium Chloride Carbon Dioxide Anion Gap BUN Creatinine Estim Creat Clear Calc Est GFR (MDRD) Af Amer Est GFR (MDRD) Non-Af BUN/Creatinine Ratio Glucose Lactic Acid Calcium Urine Color Yellow Urine Clarity Clear Urine pH 6.5 Ur Specific [place] 1.015 Urine Protein 30 H Urine Glucose (UA) Normal Urine Ketones 15 H Urine Occult Blood 150 H Urine Nitrite Negative Urine Bilirubin Negative Urine Urobilinogen Normal Ur Leukocyte Esterase 100 H Urine RBC 0 SEEN Urine WBC 25-50 SEEN Ur Squamous Epith Cells 0 SEEN Urine Bacteria 1+ Urine Mucus 0 SEEN - EKG Initial EKG Interpretation: Sinus Tachycardia - Sinus tach at 101 with no acute ischemia. - Medical Decision Making Patient's Covid test has returned negative. He does have evidence of a UTI. CT scan shows thickening of the bladder wall but no other significant findings. Appendix is visualized and appears normal. Remaining blood work is unremarkable. Patient was given Tylenol for a headache and will be treated with a 3-day course of Cipro. Urine culture will be sent. Patient is comfortable with this plan will monitor his symptoms at home. Return instructions were provided. ED Disposition - Plan for ED Patient: Disposition: Home or Assisted Living Diagnosis: UTI (urinary tract infection) Instructions: ED Bladder Infection, Male (Adult) Prescriptions: Ciprofloxacin [Cipro] 500 mg PO BID #6 tab Transmission Status: Pending to [facility] Referrals: Ki Walker MD [Primary Care Provider] - 1 Week if not improving
[2020-05-07 10:00] VITALS: BP 160/97; PULSE 88; RESP 18; TEMP 37.1; O2SAT 96
[2020-05-07 10:22] LABS: Absolute Lymphocyte Count 1.06 X10^3/uL (0.83-4.51); Absolute Neutrophil Count 5.7 X10^3/uL (2.0-7.7); Basophil# 0.03 X10^3/uL; Basophil% 0.4 % (0-1); Eosinophil# 0.09 X10^3/uL; Eosinophils% 1.2 % (0-5); Hematocrit 45.5 % (40-54); Hemoglobin 15.6 g/dL (13.0-16.5); Lymphocyte # 1.06 X10^3/ul (4.0); Lymphocyte % 14.3 % (19-41); Mean Corp Hgb Conc 34.3 g/dL (32-36); Mean Corpuscular Hgb 29.2 pg (27.0-32.0); Mean Platelet Vol. 9.3 fl (6.2-12.0); Monocyte# 0.53 X10^3/uL; Monocyte% 7.1 % (0-10); NRBC Flagged by Analyzer 0 % (0-5); Neutrophil # 5.67 X10^3/uL (2.7-7.7); Neutrophil % 76.5 % (47-70); Platelet Count 259 K/mm3 (150-450); RBC Distribution Width CV 12.6 % (11.6-14.6); RBC Distribution Width SD 38.5 fl (35.1-43.9); Red Blood Count 5.35 M/mm3 (4.6-6.2); White Blood Count 7.4 K/mm3 (4.4-11.0)
[2020-05-07 10:27] LABS: Anion Gap 5 (5-15); BUN 14 mg/dL (7-18); BUN/Creat Ratio 11.2 RATIO (10-20); Calcium,Total 8.9 mg/dL (8.5-10.1); Chloride 107 mmol/L (98-107); Creatinine, Serum 1.25 mg/dL (0.70-1.30); EST Glomerular Filtration Rate 62 mL/min (>60); Est Glom Filt Rate - Afr Amer 76 mL/min (>60); Estimated Creatinine Clearance 60.04 ml/min; Glucose 138 mg/dL (74-106); Potassium 3.4 mmol/L (3.5-5.1); Sodium Level 138 mmol/L (136-145)
[2020-05-07 10:49] LABS: Mucous, Urine 0 SEEN /hpf (<or=2+); Red Blood Cells-Urine 0 SEEN /hpf (0-5); Squamous Epithelial Cells - UA 0 SEEN /hpf (0-5)
[2020-05-07 10:53] LABS: Color, Urine Yellow (Yellow); Glucose, Dipstick Normal (Normal); Ketone-Dipstick 15 mg/dl (Negative); Leukocyte Esterase-Dipstick 100 /ul (Negative); Nitrite-Dipstick Negative (Negative); Occult Blood-Urine 150 /ul (Negative); Protein-Dipstick 30 mg/dl (Negative); Specific Gravity, Urine 1.015 (1.002-1.030); Urine Bilirubin Dipstick Negative (Negative); Urine Clarity Clear (Clear); Urine Urobilinogen Normal (Normal); Urine pH 6.5 (5.0 - 8.0)
[2020-05-07 10:59] LABS: Lactic Acid 1.4 mmol/L (0.4-1.9)
[2020-05-07 11:00] VITALS: BP 148/94; PULSE 92; RESP 19; TEMP 36.8; O2SAT 94
[2020-05-07 11:21] LABS: Bacteria 1+ /hpf (None Seen); White Blood Cells 25-50 SEEN /hpf (0-5)
[2020-05-07 13:29] VITALS: BP 156/97; PULSE 97; RESP 16; TEMP 37.1; O2SAT 95
[2020-05-07] MEDS: Acetaminophen 500 MG Tablet 1000 MG PO (13:42)
[2020-05-07] MEDS: Ciprofloxacin 500 MG Tablet PO (14:01)
== END 2020-05-07 14:01 | disposition home or self-care (01) ==
PROVIDERS: Emergency Provider Emergency Medicine; PCP Family Medicine
DX: N39.0 Urinary tract infection, site not specified (principal); E78.5 Hyperlipidemia, unspecified; I10 Essential (primary) hypertension; Z95.1 Presence of aortocoronary bypass graft; Z79.899 Other long term (current) drug therapy
CPT/HCPCS: 71045; 74177; 80048; 81001; 83605; 85025; 87040; 87077; 87086; 87088; 87186; 87426; 93005; 99285; Q9967

== ENCOUNTER → 2021-01-24 07:20 | Outpatient (CLI) | payer OTHER, SELFPAY ==
[2021-01-24 08:22] LABS: AST(SGOT) 21 U/L (15-37); Alanine Aminotransfer ALT/SGPT 30 U/L (16-61); Albumin, Serum 3.5 g/dL (3.2-5.0); Alkaline Phosphatase 72 U/L (45-117); Bilirubin, Direct 0.15 mg/dL (0.00-0.30); Cholesterol 210 mg/dL (200); Globulin 3.8 g/dL (2.2-4.2); High Density Lipoprotein 49 mg/dL; Protein, Total 7.3 g/dL (6.4-8.2); Triglycerides 242 mg/dL; Very Low Density Lipoprotein 48 mg/dL (5-40)
== END ==
PROVIDERS: PCP Family Medicine; Referring Provider Internal Medicine Cardiovascular Disease; Visit Provider Internal Medicine Cardiovascular Disease
DX: E78.00 Pure hypercholesterolemia, unspecified (principal)
CPT/HCPCS: 36415; 80061; 80076

== ENCOUNTER → 2022-01-16 | Outpatient (CLI) | payer OTHER, SELFPAY ==
[2022-01-16 09:14] LABS: AST(SGOT) 26 U/L (15-37); Alanine Aminotransfer ALT/SGPT 42 U/L (16-61); Albumin, Serum 3.7 g/dL (3.2-5.0); Alkaline Phosphatase 66 U/L (45-117); Bilirubin, Direct 0.21 mg/dL (0.00-0.30); Cholesterol 165 mg/dL (200); Globulin 3.9 g/dL (2.2-4.2); High Density Lipoprotein 47 mg/dL; Protein, Total 7.6 g/dL (6.4-8.2); Triglycerides 165 mg/dL; Very Low Density Lipoprotein 33 mg/dL (5-40)
== END | disposition home or self-care (01) ==
LOC: LAB 07:41
PROVIDERS: PCP Family Medicine; Referring Provider Internal Medicine Cardiovascular Disease; Visit Provider Internal Medicine Cardiovascular Disease
DX: E78.00 Pure hypercholesterolemia, unspecified (principal)
CPT/HCPCS: 36415; 80061; 80076

== ENCOUNTER → 2022-05-13 | Outpatient (CLI) | payer OTHER, SELFPAY ==
[2022-05-16 05:06] LABS: Almond <0.10 kU/L (Class 0); Cashew <0.10 kU/L (Class 0); Clam <0.10 kU/L (Class 0); Codfish <0.10 kU/L (Class 0); Corn <0.10 kU/L (Class 0); Egg, White <0.10 kU/L (Class 0); Milk (Cow) 0.16 kU/L (Class 0/I); Peanut <0.10 kU/L (Class 0); SCALLOP <0.10 kU/L (Class 0); SESAME SEED <0.10 kU/L (Class 0); Shrimp <0.10 kU/L (Class 0); Soybean <0.10 kU/L (Class 0); Strawberry <0.10 kU/L (Class 0); Walnut, (Food) <0.10 kU/L (Class 0); Wheat <0.10 kU/L (Class 0)
[2022-05-16 21:55] LABS: Peanut <0.10 kU/L (Class 0); Yeast <0.10 kU/L (Class 0)
== END | disposition home or self-care (01) ==
LOC: LAB 09:16
PROVIDERS: PCP Family Medicine; Visit Provider Otolaryngology Otolaryngology/Facial Plastic Surgery
DX: T78.40XA Allergy, unspecified, initial encounter (principal)
CPT/HCPCS: 36415; 86003

== ENCOUNTER → 2023-03-20 | Outpatient (CLI) | payer OTHER, SELFPAY ==
[2023-03-20 08:42] LABS: AST(SGOT) 23 U/L (15-37); Alanine Aminotransfer ALT/SGPT 37 U/L (16-61); Albumin, Serum 3.8 g/dL (3.2-5.0); Alkaline Phosphatase 73 U/L (45-117); Bilirubin, Direct 0.25 mg/dL (0.00-0.30); Cholesterol 201 mg/dL (200); Globulin 3.6 g/dL (2.2-4.2); High Density Lipoprotein 49 mg/dL; Protein, Total 7.4 g/dL (6.4-8.2); Triglycerides 239 mg/dL; Very Low Density Lipoprotein 48 mg/dL (5-40)
== END | disposition home or self-care (01) ==
LOC: LAB 07:40
PROVIDERS: PCP Family Medicine; Visit Provider Physician Assistant Medical
DX: I25.10 Atherosclerotic heart disease of native coronary artery without angina pectoris (principal); R73.9 Hyperglycemia, unspecified; E78.5 Hyperlipidemia, unspecified
CPT/HCPCS: 36415; 80061; 80076

== ENCOUNTER 2023-04-20 11:05 | Emergency (ER) | payer OTHER, SELFPAY ==
[2023-04-20] VITALS (7 sets, daily range): BP systolic 125–151; BP diastolic 86–108; PULSE 75–136; RESP 16–20; TEMP 36.4–38; O2SAT 95–96; BMI 27.3
--- NOTE | 2023-04-20 11:19 | RAD_ITS ---
INDICATION: cough EXAMINATION/TECHNIQUE: X-RAY - XR Chest 2 Views COMPARISON: May 07, 2020 FINDINGS: LINES/DEVICES: None. LUNGS: There is a stable calcified nodule within the left lower lung with a granuloma. There is no new focal consolidation. No pneumothorax. MEDIASTINUM AND CARDIOVASCULAR STRUCTURES: There are sternotomy wires in place. Cardiac silhouette not enlarged. Central airways and mediastinal contour are unremarkable. BONES AND SOFT TISSUES: Unremarkable. RAD/Chest PA and Lateral IMPRESSION: No acute cardiopulmonary process. Electronically Signed: Aaliyah Perry MD at 13:50 EST ,
--- NOTE | 2023-04-20 11:21 | ED.VIS.DYS ---
HPI <ART Valdovinos - Last Filed: 04/20/23 15:53> History of Present Illness Chief Complaint: Shortness of Breath Narrative Narrative: Patient presenting today due to a dry cough that he has had for the past week. He reports that he went to urgent care prior to coming here but his heart rate was elevated and they encouraged him to come into the ED for evaluation. He reports that he has had intermittent fevers since Friday. His grandchildren were recently sick with cold-like symptoms at the beginning of the month. He reports slight shortness of breath both at rest and with exertion. He reports a PMH of CAD with 5 vessel CABG, hypertension, hyperlipidemia. PE Risk Factors: Negative for Cancer, OCP + Smoking + > 35, Prior DVT or PE, Recent immobilization, Recent surgery or Recent travel PFSH <ART Valdovinos - Last Filed: 04/20/23 15:53> PFSH Medical History Atherosclerotic heart disease of [place] coronary artery without angina pectoris Essential hypertension Hyperlipidemia Ischemic cardiomyopathy Old myocardial infarction Home Medications aspirin 81 mg chewable tablet 81 mg PO DAILY@0800 03/21/14 [History Last Taken Unknown] metoprolol tartrate 25 mg tablet 25 mg PO BID #180 tabs 01/21/22 [Rx Last Taken Unknown] ezetimibe 10 mg tablet (Zetia) 10 mg PO DAILY #90 tabs 08/28/22 [Rx Last Taken Unknown] pravastatin 80 mg tablet 80 mg PO QHS 03/24/23 [History Last Taken Unknown] benzonatate 100 mg capsule 100 mg PO BID PRN cough 5 days #10 caps 04/20/23 [Rx Last Taken Unknown] doxycycline hyclate 100 mg capsule 100 mg PO BID #10 caps 04/20/23 [Rx Last Taken Unknown] Allergy/AdvReac Type Severity Reaction Status Date / Time Milk Containing Products Allergy Unknown Abd Verified 04/20/23 11:20 (Dairy) cramps/diarrhea atorvastatin [From Lipitor] AdvReac Severe elevated Verified 04/20/23 11:20 LFT's Family History Father Myocardial infarction, Onset Age: 43 Brother CAD (coronary artery disease) Brother CAD (coronary artery disease) Surgical History Aortocoronary bypass status (~10/26/13) Social History Smoking Status: Never smoker alcohol intake: never substance use type: does not use ROS <ART Valdovinos - Last Filed: 04/20/23 15:53> ROS ED Constitutional Constitutional ED: Reports fever(s) ENT ENT ED: Denies rhinorrhea or sore throat Cardiovascular Cardiovascular: Denies chest pain or palpitations Respiratory/Chest Respiratory/Chest: Reports cough, dyspnea and dyspnea on exertion; Denies tachypnea or wheezing Gastrointestinal Gastrointestinal: Denies abdominal pain, nausea or vomiting Musculoskeletal Musculoskeletal: Denies arthralgias or myalgias Integumentary Denies rash Neurologic Neurologic: Denies weakness EXAM <ART Valdovinos - Last Filed: 04/20/23 15:53> Physical Exam Const Vital Signs: 04/20/23 11:09 04/20/23 11:18 04/20/23 11:18 Temperature 97.6 F L 100.1 F H 100.1 F H Temperature Source Temporal Oral Oral Pulse Rate 136 H 122 H 117 H Respiratory Rate 18 18 18 Respiratory Effort Respiratory Depth Respiratory Pattern Blood Pressure 135/108 H 125/91 H 125/91 H Blood Pressure Mean 117 102 102 Pulse Ox 96 95 95 Oxygen Delivery Method Room Air Room Air Room Air 04/20/23 11:22 04/20/23 11:22 04/20/23 12:25 Temperature 100.4 F H Temperature Source Oral Pulse Rate 98 Respiratory Rate 20 H Respiratory Effort Short of Breath Short of Breath Respiratory Depth Normal Respiratory Pattern Normal Normal Blood Pressure 143/86 H Blood Pressure Mean 105 Pulse Ox 96 Oxygen Delivery Method Room Air Room Air 04/20/23 12:57 04/20/23 12:58 04/20/23 13:54 Temperature 98.4 F 98.4 F 98.1 F Temperature Source Axillary Oral Pulse Rate 75 75 86 Respiratory Rate 16 16 16 Respiratory Effort Respiratory Depth Respiratory Pattern Blood Pressure 148/86 H 148/86 H 151/93 H Blood Pressure Mean 106 106 112 Pulse Ox 95 95 95 Oxygen Delivery Method Room Air Room Air Positive well nourished, well developed and no apparent distress General Appearance ED: well developed HEENT Reports normocephalic, head/scalp atraumatic and TM's clear HEENT Narrative: Dry mucous membranes, posterior pharynx clear without any erythema or tonsillar exudate, uvula midline Tympanic Membrane ED: Yes TM's clear bilateral Eyes PERRL and EOMs intact bilaterally Neck full ROM, supple and no meningeal signs Chest Wall inspection of chest normal Resp normal respiratory effort and clear to auscultation bilaterally Cardio regular rate and regular rhythm GI soft to palpation, non-tender, non-distended and no masses Back/Spine normal ROM and normal to inspection Extremity normal to inspection and full ROM Neuro oriented x3, CN's II-XII intact bilaterally, moves all extremities, no focal motor deficits and no sensory deficits noted Sensorium / Orientation: awake and alert Psych mental status grossly normal and thought process normal Skin no rashes or lesions noted and no wounds <Dr. Bouchra Menezes DO - Last Filed: 04/20/23 17:08> Physical Exam Const Vital Signs: 04/20/23 11:09 04/20/23 11:18 04/20/23 11:18 Temperature 97.6 F L 100.1 F H 100.1 F H Temperature Source Temporal Oral Oral Pulse Rate 136 H 122 H 117 H Respiratory Rate 18 18 18 Respiratory Effort Respiratory Depth Respiratory Pattern Blood Pressure 135/108 H 125/91 H 125/91 H Blood Pressure Mean 117 102 102 Pulse Ox 96 95 95 Oxygen Delivery Method Room Air Room Air Room Air 04/20/23 11:22 04/20/23 11:22 04/20/23 12:25 Temperature 100.4 F H Temperature Source Oral Pulse Rate 98 Respiratory Rate 20 H Respiratory Effort Short of Breath Short of Breath Respiratory Depth Normal Respiratory Pattern Normal Normal Blood Pressure 143/86 H Blood Pressure Mean 105 Pulse Ox 96 Oxygen Delivery Method Room Air Room Air 04/20/23 12:57 04/20/23 12:58 04/20/23 13:54 Temperature 98.4 F 98.4 F 98.1 F Temperature Source Axillary Oral Pulse Rate 75 75 86 Respiratory Rate 16 16 16 Respiratory Effort Respiratory Depth Respiratory Pattern Blood Pressure 148/86 H 148/86 H 151/93 H Blood Pressure Mean 106 106 112 Pulse Ox 95 95 95 Oxygen Delivery Method Room Air Room Air MDM <ART Valdovinos - Last Filed: 04/20/23 15:53> MDM MDM Narrative Medical decision making narrative: Patient presenting due to a dry cough has had over the past week, he has had intermittent fever since Friday. He is febrile here at 100.1 ?F, he is tachycardic, oxygen saturation is stable in the low 90s. Patient is nontoxic-appearing and in no acute distress. Differentials include COVID, influenza, viral illness, pneumonia. Labs to be obtained as well as COVID and flu swabs. Chest x-ray obtained to rule out cardiopulmonary abnormality. He will be given IV fluids and ibuprofen for his fever. CBC and BMP are unremarkable. Chest x-ray negative for any acute findings. Given patient has been symptomatic for over a week week, we will cover him with doxycycline with first dose here. He will also be given a prescription for Tessalon Perles. He will be discharged home in stable condition and is comfortable with plan. I have personally performed a face to face assessment of the patient and have reviewed the JOHN Note. I performed a substantive portion of the visit including all aspects of the following. My liriano findings include: History is [patient presents with cough for about a week and a half. Cough mostly nonproductive. Few weeks ago had grandkids that were sick. Patient complaining of fever and chills. Denies chest pain currently. Patient with history of coronary artery disease as well as hypertension and cholesterol. Denies recent travel or surgery.] Exam is [HEENT-PERRLA, EOMI. Cranial nerves II through XII grossly intact. TMs clear. Mucous membranes moist. No adenopathy. Cardiovascular-regular rate and rhythm without murmur or ectopy Lungs-clear to auscultation, chest wall stable without crepitus or subcu emphysema Abdomen-normoactive bowel sounds, soft, nontender, no rebound or rigidity, no peritoneal signs. Extremities-intact ?4, normal range of motion, normal pulses, atraumatic] Medical Decison Making [patient with cough for over a week. Lab workup obtained showed no normal white count of 5.9 with hemoglobin 15.6 and platelet count of 232. Chemistries unremarkable. Lactate was normal at 1.0. Chest x-ray 1 view on my interpretation shows no acute disease process and no evidence of infiltrate. COVID and flu testing were negative. At this point will start on doxycycline as he had a cough for over a week and at times bring up some sputum. Advised to follow-up with his primary care physician within the next 3 to 5 days. He is to return if increasing shortness of breath or condition worsen in any way. Will also add Tessalon Perles for his cough.] Other additions or changes: [None] Lab Data Attestation: I reviewed the patient's lab results. Lab results narrative: Potassium 3.4 Labs: Laboratory Results - last 24 hr 04/20/23 11:40 WBC 5.9 RBC 5.37 Hgb 15.6 Hct 45.4 MCV 84.5 MCH 29.1 MCHC 34.4 RDW Std Deviation 39.9 RDW Coeff of Missy 12.9 Plt Count 232 MPV 9.2 Immature Gran % (Auto) 0.300 Neut % (Auto) 75.8 H Lymph % (Auto) 11.5 L [place] % (Auto) 11.8 H Eos % (Auto) 0.3 Baso % (Auto) 0.3 Absolute Neuts (auto) 4.5 Absolute Lymphs (auto) 0.68 L Nucleated RBC % 0 Sodium 136 Potassium 3.4 L Chloride 104 Carbon Dioxide 25.0 Anion Gap 7 BUN 15 Creatinine 1.27 Estim Creat Clear Calc 57.60 Est GFR (MDRD) Af Amer 73 Est GFR (MDRD) Non-Af 61 BUN/Creatinine Ratio 11.8 Glucose 118 H Lactic Acid 1.0 Calcium 9.7 Radiography X-Ray: Read by ED Physician and Read by Radiologist Diagnostic Testing: Clinical Impression(s) from Imaging Studies Chest X-Ray 04/20/23 11:19 IMPRESSION: No acute cardiopulmonary process. Electronically Signed: Aaliyah Perry MD at 13:50 EST , <Dr. Bouchra Menezes, DO - Last Filed: 04/20/23 17:08> [facility] Narrative Medical decision making narrative: Patient presenting due to a dry cough has had over the past week, he has had intermittent fever since Friday. He is febrile here at 100.1 ?F, he is tachycardic, oxygen saturation is stable in the low 90s. Patient is nontoxic-appearing and in no acute distress. Differentials include COVID, influenza, viral illness, pneumonia. Labs to be obtained as well as COVID and flu swabs. He will be given IV fluids and ibuprofen for his fever as he just took Tylenol this morning. I have personally performed a face to face assessment of the patient and have reviewed the JOHN Note. I performed a substantive portion of the visit including all aspects of the following. My liriano findings include: History is [patient presents with cough for about a week and a half. Cough mostly nonproductive. Few weeks ago had grandkids that were sick. Patient complaining of fever and chills. Denies chest pain currently. Patient with history of coronary artery disease as well as hypertension and cholesterol. Denies recent travel or surgery.] Exam is [HEENT-PERRLA, EOMI. Cranial nerves II through XII grossly intact. TMs clear. Mucous membranes moist. No adenopathy. Cardiovascular-regular rate and rhythm without murmur or ectopy Lungs-clear to auscultation, chest wall stable without crepitus or subcu emphysema Abdomen-normoactive bowel sounds, soft, nontender, no rebound or rigidity, no peritoneal signs. Extremities-intact ?4, normal range of motion, normal pulses, atraumatic] Medical Decison Making [patient with cough for over a week. Lab workup obtained showed no normal white count of 5.9 with hemoglobin 15.6 and platelet count of 232. Chemistries unremarkable. Lactate was normal at 1.0. Chest x-ray 1 view on my interpretation shows no acute disease process and no evidence of infiltrate. COVID and flu testing were negative. At this point will start on doxycycline as he had a cough for over a week and at times bring up some sputum. Advised to follow-up with his primary care physician within the next 3 to 5 days. He is to return if increasing shortness of breath or condition worsen in any way. Will also add Tessalon Perles for his cough.] Other additions or changes: [None] Lab Data Labs: Laboratory Results - last 24 hr 04/20/23 11:40 WBC 5.9 RBC 5.37 Hgb 15.6 Hct 45.4 MCV 84.5 MCH 29.1 MCHC 34.4 RDW Std Deviation 39.9 RDW Coeff of Missy 12.9 Plt Count 232 MPV 9.2 Immature Gran % (Auto) 0.300 Neut % (Auto) 75.8 H Lymph % (Auto) 11.5 L [place] % (Auto) 11.8 H Eos % (Auto) 0.3 Baso % (Auto) 0.3 Absolute Neuts (auto) 4.5 Absolute Lymphs (auto) 0.68 L Nucleated RBC % 0 Sodium 136 Potassium 3.4 L Chloride 104 Carbon Dioxide 25.0 Anion Gap 7 BUN 15 Creatinine 1.27 Estim Creat Clear Calc 57.60 Est GFR (MDRD) Af Amer 73 Est GFR (MDRD) Non-Af 61 BUN/Creatinine Ratio 11.8 Glucose 118 H Lactic Acid 1.0 Calcium 9.7 Radiography Diagnostic Testing: Clinical Impression(s) from Imaging Studies Chest X-Ray 04/20/23 11:19 IMPRESSION: No acute cardiopulmonary process. Electronically Signed: Aaliyah Perry MD at 13:50 EST Reading Location ID and State: [facility] / [place] Tel , Service support , EKG Initial EKG: Attestation: I personally reviewed and interpreted this EKG as follows: Comments: Sinus tachycardia with rate of 118 bpm with no acute ST segment changes Discharge Plan Triage Chief Complaint: Shortness of Breath Other Complaint: Fever ED Midlevel Provider: Shanika Lancaster ED Provider: Bouchra Menezes Dx/Rx/DC Orders Clinical Impression: Bronchitis, Mild dehydration Instructions: ED Upper Resp Infec Abx Tx Prescriptions: New doxycycline hyclate 100 mg capsule 100 mg PO BID Qty: 10 0RF benzonatate 100 mg capsule 100 mg PO BID PRN (Reason: cough) 5 Days Qty: 10 0RF No Action pravastatin 80 mg tablet 80 mg PO QHS aspirin 81 MG tablet,chewable 81 mg PO DAILY@0800 metoprolol tartrate 25 mg tablet 25 mg PO BID Qty: 180 3RF ezetimibe [Zetia] 10 mg tablet 10 mg PO DAILY Qty: 90 4RF Primary Care Provider: Ki Walker Referrals: Ki Walker MD [Primary Care Provider] - 3-5 Days Activity Restrictions/Additional Instructions: Alternate Tylenol and ibuprofen for your fevers, return for any worsening of your symptoms. Disposition Disposition: Home, Self Care Discharge Date/Time: 04/20/23 14:15
[2023-04-20] MEDS: Ibuprofen 200 MG Tablet 400 MG PO (11:33)
[2023-04-20] MEDS: 0.9% Normal Saline (1000mL) 1,000 ML 999 ML IV (11:45)
--- NOTE | 2023-04-20 11:53 | EKG12_ITS ---
Test Reason : Blood Pressure : / mmHG Vent. Rate : 118 BPM Atrial Rate : 118 BPM P-R Int : 132 ms QRS Dur : 080 ms QT Int : 324 ms P-R-T Axes : 067 035 046 degrees QTc Int : 454 ms Sinus tachycardia Otherwise normal ECG Confirmed by LV LANIER, KIMBERLEE ([id number]), editor in chief JEFFERSON HOLCOMB ([id number]) on 04/21/2023 1:05:35 PM Referred By: GAY Confirmed By:KIMBERLEE AWAN MD
[2023-04-20 12:11] LABS: Anion Gap 7 (5-15); BUN 15 mg/dL (7-18); BUN/Creat Ratio 11.8 RATIO (10-20); Calcium,Total 9.7 mg/dL (8.5-10.1); Chloride 104 mmol/L (98-107); Creatinine, Serum 1.27 mg/dL (0.70-1.30); EST Glomerular Filtration Rate 61 mL/min (>60); Est Glom Filt Rate - Afr Amer 73 mL/min (>60); Glucose 118 mg/dL (74-106); Potassium 3.4 mmol/L (3.5-5.1); Sodium Level 136 mmol/L (136-145)
[2023-04-20 12:34] LABS: Absolute Lymphocyte Count 0.68 X10^3/uL (0.83-4.51); Absolute Neutrophil Count 4.5 X10^3/uL (2.0-7.7); Basophil# 0.02 X10^3/uL; Basophil% 0.3 % (0-1); Eosinophil# 0.02 X10^3/uL; Eosinophils% 0.3 % (0-5); Hematocrit 45.4 % (40-54); Hemoglobin 15.6 g/dL (13.0-16.5); Lymphocyte # 0.68 X10^3/ul (0.83-4.51); Lymphocyte % 11.5 % (19-41); Mean Corp Hgb Conc 34.4 g/dL (32-36); Mean Corpuscular Hgb 29.1 pg (27.0-32.0); Mean Corpuscular Volume 84.5 fL (80-94); Mean Platelet Vol. 9.2 fl (6.2-12.0); Monocyte% 11.8 % (0-10); NRBC Flagged by Analyzer 0 % (0-5); Neutrophil # 4.48 X10^3/uL (2.7-7.7); Neutrophil % 75.8 % (47-70); Platelet Count 232 K/mm3 (150-450); RBC Distribution Width CV 12.9 % (11.6-14.6); RBC Distribution Width SD 39.9 fl (35.1-43.9); Red Blood Count 5.37 M/mm3 (4.6-6.2); White Blood Count 5.9 K/mm3 (4.4-11.0)
[2023-04-20] MEDS: Doxycycline 100 MG CAPSULE PO (12:57)
== END 2023-04-20 14:15 | disposition home or self-care (01) ==
PROVIDERS: Physician Assistant; Emergency Provider Emergency Medicine; PCP Family Medicine; Visit Provider Emergency Medicine
DX: J40 Bronchitis, not specified as acute or chronic (principal); E86.0 Dehydration; I25.10 Atherosclerotic heart disease of native coronary artery without angina pectoris; I10 Essential (primary) hypertension; E78.5 Hyperlipidemia, unspecified; I25.2 Old myocardial infarction; Z79.82 Long term (current) use of aspirin; Z79.899 Other long term (current) drug therapy; Z95.1 Presence of aortocoronary bypass graft
CPT/HCPCS: 96361; 71046; 80048; 83605; 85025; 87040; 87428; 93005; 96360; 99285; J7030; A4216

== ENCOUNTER → 2024-03-02 | Outpatient (CLI) | payer OTHER, SELFPAY ==
--- OUTSIDE RECORDS SUMMARY | 2024-03-02 07:36 | XMS RPT_ITS | CCD ---
Author Organization [facility] Inform ion Partnership [facility] Care Team Providers [employer] Driver Name Role Phone MILTON Cano, Annalisa Zaidi Unavailable Sheree Viera Unavailable Unavailable Logan Short MD Primary Care Provider LOGAN SHORT Primary Care Unavailable Logan Short MD Primary Care Provider Allergies Allergy Classification Reported Allergen(s) Allergy Type Date of Onset Reaction(s) Facility (2 sources) atorvastatin Drug Allergy 4 elevated LFT's [facility] Work Phone: (4 sources) NKDA drug allergy 4 [facility] Work Phone: (1 source) atorvastatin Drug Allergy 4 Unknown [facility] (1 source) Lactose Drug Allergy 3 Intolerance [facility] Medications Current Medications Medication Drug Class(es) Dates Sig (Normalized) Sig (Original) [id number] 200 actuat albuterol 0.09 mg/actuat metered dose inhaler (3 sources) beta2-Adrenergic Agonist Start: 04-12-2019 take 2 puff(s) by inhalation every four hours as needed albuterol HFA (PROVENTIL HFA, VENTOLIN HFA) 90 mcg/actuation inhaler Indications: Sinobronchitis Inhale 2 Puffs as instructed every 4 hours as needed. 1 Inhaler 04/12/2019 Active Comment on above: Inhale 2 Puffs as in structed every 4 hours as needed. amoxicillin 875 mg / clavulanate 125 mg oral tablet (1 source) Penicillin-class Antibacterial Start: 04-07-2022 End: 04-14-2022 take 1 tablet by mouth twice daily amoxicillin-clavula lamonte acid (AUGMENTIN) 875-125 mg per tablet Indications: Lower respiratory tract infection Take 1 tablet by mouth twice daily for 7 days. 14 tablet 0 04/07/2022 04/14/2022 Active Comment on above: Take 1 tablet by april th twice daily for 7 days. azithromycin 250 mg oral tablet (1 source) Macrolide Antimicrobial Start: 04-07-2022 End: 04-12-2022 take 2 tablets by mouth once daily, then take 1 tablet by mouth once daily azithromycin (ZITHROMAX) 250 mg tablet Indications: Lower respiratory tract infection Take 2 tablets by mouth once daily for 1 day, THEN 1 tablet once daily for 4 days. 6 tablet 0 04/07/2022 04/12/2022 Active Comment on above: Take 2 tablets by mo ut once daily for 1 day, THEN 1 tablet once daily for 4 days. Completed/Discontinued Medications Medication Drug Class(es) Dates Sig (Normalized) Sig (Original) aspirin 81 mg oral tablet (7 sources) Nonsteroidal Anti-inflammatory Drug Start: 12-02-2013 take 1 tablet by mouth once daily ASPIRIN 81 MG TABS One tablet by mouth daily ASPIRIN [id number] Des Castano MD Start: 12-02-2013 take 1 tablet by april th once daily ASPIRIN EC 81 MG TBEC One tablet by mouth daily ASPIRIN [id number] Sheree Viera Comment on above: Take 81 mg by mouth once daily. clopidogrel 75 mg oral tablet (5 sources) P2Y12 Platelet Inhibitor Start: 4 take 1 tablet by mouth once daily CLOPIDOGREL BISULFATE 75 MG TABS One tablet by mouth daily CLOPIDOGREL BISULFATE [id number] Des Castano MD Comment on above: Take 75 mg by mouth once daily. lisinopril 2.5 mg oral tablet (4 sources) Angiotensin Converting Enzyme Inhibitor Start: 4 End: 4 take 1 tablet by mouth once daily LISINOPRIL 2.5 MG TABS One tablet by mouth daily LISINOPRIL [id number] Camille K Juan RN metoprolol tartrate 25 mg oral tablet (11 sources) beta-Adrenergic Jewels Start: 4 take 2 tablets by mouth twice daily METOPROLOL TARTRATE 25 MG TABS Two tablets by mouth twice daily METOPROLOL TARTRATE [id number] Camille Martinez RN Start: 11-30-2013 take 1 tablet by april th twice daily METOPROLOL TARTRATE 25 MG TABS One tablet by mouth twice daily METOPROLOL TARTRATE [id number] Des Castano MD Start: 11-30-2013 take 3 tablets by mo uth twice daily METOPROLOL TARTRATE 25 MG TABS Three tablets by mouth twice a day METOPROLOL TARTRATE [id number] Camille Martinez RN Start: 11-30-2013 take 1 tablet by april th twice daily METOPROLOL TARTRATE 50 MG TABS One tablet by mouth twice daily METOPROLOL TARTRATE [id number] Des Castano MD take 1 tablet by april th once daily, then take 1 tablet by mouth every twenty-four hours metoprolol succinate XL, long acting, (TOPROL XL) 50 mg 24 hr tablet Take 50 mg by mouth once daily. Active Comment on above: Take 50 mg by mouth once daily. oxyCODONE hydrochloride 5 mg oral tablet (4 sources) Opioid Agonist Start: 4 End: 4 take 1 tablet by mouth every four hours as needed OXYCODONE HCL 5 MG TABS 1 tablet by mouth every 4 hrs as needed OXYCODONE HCL [id number] Des Castano MD pantoprazole 40 mg delayed release oral tablet (4 sources) Proton Pump Inhibitor Start: 4 End: 4 take 1 tablet by mouth once daily PANTOPRAZOLE SODIUM 40 MG TBEC One tablet by mouth daily PANTOPRAZOLE SODIUM [id number] Camille Martinez RN pravastatin sodium 40 mg oral tablet (9 sources) HMG-CoA Reductase Inhibitor Start: 4 take 1 tablet by mouth at bedtime PRAVASTATIN SODIUM 40 MG TABS One tablet by mouth at bedtime. PRAVASTATIN SODIUM [id number] Des Castano MD Start: 11-30-2013 take 2 tablets by mo uth at bedtime PRAVASTATIN SODIUM 40 MG TABS Two tablets by mouth at bedtime. PRAVASTATIN SODIUM [id number] Camille Martinez RN Start: 11-30-2013 take 1 tablet by april th at bedtime PRAVASTATIN SODIUM 80 MG TABS One tablet by mouth at bedtime. PRAVASTATIN SODIUM [id number] Des Castano MD Comment on above: Take 40 mg by mouth once daily. Problems Active Problems Problem Classification Problem Date Documented Date Episodic/Chronic Acute myocardial infarction (2 sources) Acute myocardial infarction; Translations: [Acute myocardial infarction, unspecified site, episode of care unspecified] Onset: 11-30-2013 11-30-2013 Chronic Cardiac and circulatory congenital anomalies (2 sources) Bicuspid aortic valve; Translations: [Congenital insufficiency of aortic valve] Onset: 03-07-2014 03-06-2015 Chronic Cardiac dysrhythmias (1 source) Tachycardia; Translations: [Tachycardia, unspecified] 04-20-2023 Episodic Complication of device; implant or graft (2 sources) Atherosclerosis of coronary artery bypass graft(s) without angina pectoris; Translations: [Atherosclerosis of coronary artery bypass graft(s) without angina pectoris] Onset: 11-30-2013 02-21-2016 Chronic Coronary atherosclerosis and other heart disease (5 sources) Atherosclerotic heart disease of [place] coronary artery without angina pectoris; Translations: [Coronary atherosclerosis] Onset: 11-30-2013 11-30-2013 Chronic Disorders of lipid metabolism (5 sources) Hyperlipidemia; Translations: [Mixed hyperlipidemia] Onset: 11-30-2013 11-30-2013 Chronic Essential hypertension (3 sources) Essential hypertension; Translations: [Essential (primary) hypertension] Onset: 05-29-2018 05-29-2018 Chronic Fever of unknown origin (1 source) Fever; Translations: [Fever, unspecified] 04-20-2023 Episodic Heart valve disorders (2 sources) Aortic valve disorder; Translations: [Nonrheumatic aortic valve disorder, unspecified] Onset: 03-07-2014 03-07-2014 Chronic Other lower respiratory disease (1 source) Lower respiratory tract infection; Translations: [Unspecified acute lower respiratory infection] 04-08-2022 Episodic Unclassified (6 sources) Long-term drug therapy; Translations: [Long-term (current) use of other medications] Onset: 03-22-2014 Resolved: 01-11-2015 01-11-2015 Past or Other Problems Problem Classification Problem Date Documented Da te Episodic/Chronic Coronary atherosclerosis and other heart disease (2 sources) Presence of aortocoronary bypass graft; Translations: [Presence of aortocoronary bypass graft] Onset: 11-30-2013 11-30-2013 Episodic Unclassified (6 sources) Body mass index (BMI) 26.0-26.9, adult; Translations: [Family history of ischemic heart disease and other diseases of the circulatory system] Onset: 09-05-2014 09-05-2014 Episodic Results Test Name Value Interpretation Reference Range Facility [facility] 04-20-2023 CNOV Office Visit (UCWSTR ) JEANNIE STOLL ([id number]) 1960 M Date Time Provider Department 04/20/23 10:45 AM SURESH DOSHI [facility] During your visit today, we recorded the following information about you: Temperature Pulse Respiration Blood pressure 100.8 degrees 134/minute 34/minute 127/96 Weight 83.5 kg Suresh Doshi APRN.[employer] 04/20/2023 10:59 AM Signed Subjective HPI Nontoxic-appearing male presents urgent care chief complaint fever cough. States been sick for about a week and a half. New onset fever last 2 to 3 days. Recorded temperature 102.8 today. Did take Tylenol. This is helped. Presents today with increasing weakness. Has not had an appetite. Feels like his chest is clogged. Having a hard time taking deep breath. Increased work of breathing. Denies any chest pain or hemoptysis. No vomiting or abdominal pain. Past medical history prescription medication use allergies reviewed. .Patient presents with: Cough: Chest congestion x1.5 weeks, fever x2 days PAST MEDICAL HISTORY Diagnosis Date Coronary artery disease with hx of myocardial infarct w/o hx of CABG 10/25/2013 HTN (hypertension) Hyperlipidemia DC (myocardial infarction) (HCC) 2013 PAST SURGICAL HISTORY Procedure Laterality Date COLONOSCOPY 1979 COLONOSCOPY FLX DX W/COLLJ SPEC WHEN PFRMD 07/10/2018 Colonoscopy CORONARY ARTERY BYP W/VEIN AND ARTERY GRAFT 4 VEIN 10/25/2013 CABG, five grafts EXTRACTION, ERUPTED TOOTH OR EXPOSED ROOT (ELEVATION AND/OR FORCEPS REMOVAL) HEART SURGERY HX LASIK Bilateral 2000 ALLERGIES Atorvastatin and Lactose MEDICATIONS albuterol HFA (PROVENTIL HFA, VENTOLIN HFA) 90 mcg/actuation inhaler Inhale 2 Puffs as instructed every 4 hours as needed. aspirin, enteric coated (ASPIRIN, ENTERIC COATED) 81 mg EC tablet Take 81 mg by mouth once daily. metoprolol succinate XL, long acting, (TOPROL XL) 50 mg 24 hr tablet Take 50 mg by mouth once daily. clopidogrel (PLAVIX) 75 mg tablet Take 75 mg by mouth once daily. pravastatin (PRAVACHOL) 40 mg tablet Take 40 mg by mouth once daily. FAMILY HISTORY Problem Relation Age of Onset Cancer Mother ovarian Diabetes Maternal Grandmother Diabetes Maternal Grandfather Heart Father Social History Tobacco Use Smoking status: Never Smokeless tobacco: Never Substance Use Topics Drug use: Never BP 127/96 Pulse (!) 134 Temp (!) 38.2 ?C (100.8 ?F) Resp (!) 34 Wt 83.5 kg (184 lb) SpO2 94% BMI 27.37 kg/m? Review of Systems Constitutional: Positive for fever and malaise/fatigue. Negative for chills. HENT: Negative for congestion, ear discharge, ear pain, sinus pain and sore throat. Eyes: Negative for blurred vision, pain, discharge and redness. Respiratory: Positive for cough, sputum production, shortness of breath and wheezing. Negative for hemoptysis and stridor. Cardiovascular: Negative for chest pain. Gastrointestinal: Negative for abdominal pain, diarrhea, nausea and vomiting. Musculoskeletal: Positive for myalgias. Skin: Negative for itching and rash. Neurological: Negative for dizziness and headaches. Objective Physical Exam Constitutional: General: He is not in acute distress. Appearance: He is not toxic-appearing. HENT: Head: Normocephalic. Nose: Nose normal. Eyes: Pupils: Pupils are equal, round, and reactive to light. Cardiovascular: Rate and Rhythm: Tachycardia present. Rhythm irregular. Pulmonary: Effort: Pulmonary effort is normal. No respiratory distress. Breath sounds: Wheezing and rhonchi present. No rales. Musculoskeletal: Cervical back: Normal range of motion. Skin: General: Skin is warm and dry. Neurological: General: No focal deficit present. Mental Status: He is alert. ASSESSMENT/PLAN: 1. Tachycardia - ICD9: 785.0, ICD10: R00.0 (primary diagnosis) 2. Fever, unspecified fever cause - ICD9: 780.60, ICD10: R50.9 Diagnosed with tachycardia fever. Suspicious of lower respiratory tract infection. Patient is tachycardic hypoxic tachypneic and fever. Recommended patient be seen in the ED for further evaluation care. Patient will be seen at [facility]. Suresh Doshi APRN.MAX Allergies As of Date: 04/20/2023 Noted Allergy Reaction ATORVASTATIN 05/04/2014 16 - Unknown Comments: Elevated LFT's LACTOSE 04/20/2023 5 - Intolerance Date Reviewed: 04/20/2023 Reviewed by: Suresh Doshi APRN.[employer] - Fully Assessed Reason for Visit: Cough [28] Cmt: Chest congestion x1.5 weeks, fever x2 days Primary Visit Diagnosis:Tachycardia [R00.0] Other Visit Diagnosis:Fever, unspecified fever cause [R50.9] Prescriptions as of 04/20/2023 - albuterol HFA (PROVENTIL HFA, VENTOLIN HFA) 90 mcg/actuation inhaler Inhale 2 Puffs as instructed every 4 hours as needed. - aspirin, enteric coated (ASPIRIN, ENTERIC COATED) 81 mg EC tablet Take 81 mg by mouth once daily. - meto (more content not included)... Normal [facility] XR Chest PA and Lateralon IMPRESSION: No acute radiographic abnormality. [employer] Safety Engineer: PSCB Transcribe Date/Time: Apr 08 2022 9:29A Dictated by : ADILSON ELLINGTON MD This examination was interpreted and the report reviewed and electronically signed by: ADILSON ELLINGTON MD on Apr 08 2022 9:31AM [facility] DIVISION OF RADIOLOGY * * *Final Report* * * DATE OF EXAM: Apr 08 2022 9:24AM WOX [id number] - XR CHEST 2V FRONTAL/LAT / PROCEDURE REASON: Lower respiratory tract infection * * * * Physician Interpretation * * * * EXAMINATION: CHEST RADIOGRAPH (2 VIEW FRONTAL & LATERAL) CLINICAL HISTORY: Lower respiratory tract infection MQ: XC2_6 EXAM DATE/TIME: 04/08/2022 9:24 AM COMPARISON: No relevant prior studies available. RESULT: Lines, tubes, and devices: None. Lungs and pleura: No consolidation. Calcified nodule left lung base. No lung mass. No pleural effusion. No pneumothorax. Cardiomediastinal silhouette: Normal cardiomediastinal silhouette. Bones and soft tissues: Median sternotomy wires are noted. DIVISION OF RADIOLOGY Provider, [facility] - 04/08/2022 * * *Final Report* * * DATE OF EXAM: Apr 08 2022 9:24AM WOX [id number] - XR CHEST 2V FRONTAL/LAT / PROCEDURE REASON: Lower respiratory tract infection * * * * Physician Interpretation * * * * EXAMINATION: CHEST RADIOGRAPH (2 VIEW FRONTAL & LATERAL) CLINICAL HISTORY: Lower respiratory tract infection MQ: XC2_6 EXAM DATE/TIME: 04/08/2022 9:24 AM COMPARISON: No relevant prior studies available. RESULT: Lines, tubes, and devices: None. Lungs and pleura: No consolidation. Calcified nodule left lung base. No lung mass. No pleural effusion. No pneumothorax. Cardiomediastinal silhouette: Normal cardiomediastinal silhouette. Bones and soft tissues: Median sternotomy wires are noted. IMPRESSION IMPRESSION: No acute radiographic abnormality. [employer] Safety Engineer: PSCB Transcribe Date/Time: Apr 08 2022 9:29A Dictated by : ADILSON ELLINGTON MD This examination was interpreted and the report reviewed and electronically signed by: ADILSON ELLINGTON MD on Apr 08 2022 9:31AM EST [facility] Radiology Study observation (narrative) [facility] XR Chest PA and LateralOrder ed By: [facility] Provider on 04-08-2022 [facility] Lab Report: Lipid Profileon 03-03-2017 Cholesterol 150 mg/dL Invalid Interpretation Code 200 [facility] Work Phone: HDL Cholesterol 47 mg/dL Invalid Interpretation Code [facility] Work Phone: LDL Cholesterol 72 mg/dL Invalid Interpretation Code 0-130 [employer] Work Phone: [phone] Triglyceride 153 mg/dL Invalid Interpretation Code [employer] [facility] Work Phone: [phone] very low density lipoproteins 31 mg/dL Invalid Interpretation Code 5-40 [employer] [facility] Work Phone: [phone] Lab Report: Liver Profileon 03-03-2017 Alanine aminotransferase (ALT) 32 U/L Invalid Interpretation Code 12-78 [employer] Work Phone: [phone] Albumin 3.8 g/dL Invalid Interpretation Code 3.4-5.0 [employer] Work Phone: [phone] Alkaline phosphatase (ALP) 72 U/L Invalid Interpretation Code 45-117 [employer] Work Phone: [phone] Aspartate aminotransferase (AST) 20 U/L Invalid Interpretation Code 15-37 [employer] Phone: [phone] Bilirubin (direct) 0.24 mg/dL Invalid Interpretation Code 0.00-0.30 [employer] Work Phone: [phone] Bilirubin (total) 1.50 mg/dL High 0.20-1.00 [employer] Work Phone: [phone] Globulin 3.5 g/dL Invalid Interpretation Code 2.2-4.2 [employer] Phone: [phone] Protein 7.3 g/dL Invalid Interpretation Code 6.4-8.2 [employer] Phone: [phone] Office Visit: [facility] 09-07-19 17 Fall risk assessment No Invalid Interpretation Code [employer] Phone: [phone] Office Visiton 03-06-2016 Dietary management education, guidance, and counseling (procedure) yes Invalid Interpretation Code [employer] Phone: [phone] Documentation of current medications (procedure) Done Invalid Interpretation Code [employer] Work Phone: [phone] Replaced Document: Jorge A Garcia CG Observationson 09-06-2015 EKG QRS axis 14 deg Invalid Interpretation Code [employer] Work Phone: [phone] Interpretation Sinus Bradycardia WITHIN NORMAL LIMITS Invalid Interpretation Code [employer] Work Phone: [phone] P [place] 25 deg Invalid Interpretation Code [employer] Phone: [phone] TN Interval 154 ms Invalid Interpretation Code [employer] Work Phone: [phone] Pulse (Heart Rate) 58 /min Invalid Interpretation Code [employer] Work Phone: [phone] QRS Duration 98 ms Invalid Interpretation Code [employer] Work Phone: [phone] QT Interval new path ms Invalid Interpretation Code [employer] Work Phone: [phone] QTc Gaspar 403 ms Invalid Interpretation Code [employer] Work Phone: [phone] T [place] -1 deg Invalid Interpretation Code [employer] Work Phone: [phone] Clinical Lists Update: Prelo community resource officer 08-29-2015 Left ventricular Ejection fraction 55 % Invalid Interpretation Code [employer] Work Phone: [phone] Office Visiton 03-06-2015 Tobacco use CPHS Never smoker Invalid Interpretation Code [employer] Work Phone: [phone] Office Visit: [facility] 09-06-19 15 cardiac risk group C Invalid Interpretation Code [employer] Work Phone: [phone] General cardiovascular disease 10Y risk [#] [place] o N/A Invalid Interpretation Code [employer] Work Phone: [phone] Tobacco smoking status NHIS Never Invalid Interpretation Code [employer] Work Phone: [phone] External Other: [employer] thod of [employer] 12-02-2013 methcontact secmsg Invalid Interpretation Code [employer] Work Phone: [phone] Clinical Lists Update: Prelo community resource officer 10-29-2013 Calcium 8.7 mg/dL Invalid Interpretation Code [employer] Work Phone: [phone] Chloride 103 mmol/L Invalid Interpretation Code [employer] Work Phone: [phone] CO2 31 mmol/L Invalid Interpretation Code [employer] Work Phone: [phone] Creatinine 0.94 mg/dL Invalid Interpretation Code [employer] Work Phone: [phone] Hematocrit (HCT) 28.6 % Low [employer] Work Phone: [phone] Hemoglobin mass conc (Bld) 9.7 g/dL Low [facility] Work Phone: [phone] Magnesium 1.8 mg/dL Invalid Interpretation Code [facility] Work Phone: [phone] Platelets 160 10*3/mm3 Invalid Interpretation Code [facility] Work Phone: [phone] Potassium molar conc 4.0 mmol/L Invalid Interpretation Code [facility] Work Phone: [phone] Sodium 138 mmol/L Invalid Interpretation Code [facility] Work Phone: [phone] Urea nitrogen 9 mg/dL Invalid Interpretation Code [facility] Work Phone: [phone] WBC (Leukocytes) 8.7 10*3/uL Invalid Interpretation Code [facility] Work Phone: [phone] Vital Signs Date Time Vital Sign Value Performing Clinician Facility 04-20-2023 10:40-0500 Body temperature 100.8 [degF] [facility] [employer] Work Phone: [facility] 04-20-2023 10:40-0500 Body weight 83.46 kg [facility] [employer] ATT[employer] Work Phone: [facility] 04-20-2023 10:40-0500 Diastolic blood pressure 96 mm[Hg] [facility] [employer]ILD C[employer] ATTENDANT [employer] Work Phone: [facility] 04-20-2023 10:40-0500 Heart rate 134 /min [facility] [employer] Work Phone: [facility] 04-20-2023 10:40-0500 Respiratory rate 34 /min [facility] [employer] Work Phone: [facility] 04-20-2023 10:40-0500 SaO2% (BldA) [Mass fraction] 94 % [facility] [facility] [employer] Work Phone: [facility] 04-20-2023 10:40-0500 Systolic blood pressure 127 mm[Hg] [facility] [employer] Work Phone: [facility] 09-06-2016 14:26-0400 BMI (Body Mass Index) 25.9 kg/m2 Annalisa Cano PA-C [facility] Work Phone: 09-06-2016 14:26-0400 BP Diastolic 66 mm[Hg] Annalisa Cano PA-C [facility] Work Phone: 09-06-2016 14:26-0400 BP Systolic 100 mm[Hg] Annalisa Cano PA-C [facility] Work Phone: 09-06-2016 14:26-0400 Height 175.26 cm Annalisa Cano PA-C [facility] Work Phone: 09-06-2016 14:26-040 Pulse (Heart Rate) 54 /min Annalisa Cano PA-C [facility] Work Phone: 09-06-2016 14:26-040 Respiratory Rate 20 /min Annalisa Cano PA-C [facility] Work Phone: 09-06-2016 14:26-0400 Weight 79.56 kg Annalisa Cano PA-C [facility] Work Phone: 03-06-2016 15:23-0400 BSA (Body Surface Area) 1.93 m2 Annalisa Cano PA-C [facility] Work Phone: 09-05-2014 15:53-0400 BP Diastolic 80 mm[Hg] Annalisa Cano PA-C [facility] Work Phone: 09-05-2014 15:53-0400 BP Diastolic 78 mm[Hg] Annalisa Cano PA-C [facility] Work Phone: 09-05-2014 15:53-0400 BP Systolic 122 mm[Hg] [facility] Work Phone: 09-05-2014 15:53-0400 Pulse (Heart Rate) 72 /min [facility] Work Phone: Encounters Encounter Date Encounter Type Care Provider Facility Start: 04-20-2023 End: 04-20-2023 ambulatory LOGAN Ramirez [facility] Facility:[facility] Start: 04-20-2023 End: 04-20-2023 Patient encounter procedure Suresh Doshi APRN.[employer] Work Phone: [facility] Comment on above: Tachycardia (Primary Dx); Fever, unspecified fever cause Start: 04-08-2022 Telephone encounter Angella Munguia APRN.[employer] Work Phone: [facility] Comment on above: Results Start: 04-08-2022 End: 04-08-2022 Subsequent hospital visit by physician Xr [facility] Work Phone: Radiology Comment on above: Lower respiratory tr act infection [J22] Procedures Date Procedure Procedure Detail Performing Clinician Start: 04-08-2022 Radiologic exam chest 2 views Angella Rider APRN.CNP Work Phone: Start: 01-16-2022 Lipid 1996 panel - S rashaun or Plasma Suresh Doshi APRN.[employer] Work Phone: Start: 07-10-2018 Colonoscopy Angella Munguia APRN.[employer] Work Phone: Start: 02-02-2017 End: 03-06-2017 *Hepatic Function Panel Annalisa whitley PA-C Work Phone: Start: 02-02-2017 End: 03-06-2017 Lipid 1996 panel - Serum or Plasma Annalisa Cano PA-C Work Phone: Start: 09-06-2016 End: 09-06-2016 Follow Up Appt 6 months Annalisa whitley PA-C Work Phone: Start: 09-06-2016 End: 09-06-2016 PFM Annalisa Cano PA-C Work Phone: Start: 08-23-2016 End: 09-05-2016 *Hepatic Function Panel Des Castano MD Start: 08-23-2016 End: 09-05-2016 Lipid 1996 panel - Serum or Plasma Des Castano MD Start: 03-06-2016 End: 08-27-2016 *Hepatic Function Panel Des Castano MD Start: 03-06-2016 End: 03-06-2016 Follow Up Appt 6 months Des Castano MD Start: 03-06-2016 End: 08-27-2016 Lipid 1996 panel - Serum or Plasma Des Castano MD Start: 03-06-2016 End: 03-06-2016 MMM Des Castano MD Start: 02-12-2016 End: 02-28-2016 *Hepatic Function Panel Des Castano MD Start: 02-12-2016 End: 02-28-2016 Lipid 1996 panel - Serum or Plasma Des Castano MD Start: 09-06-2015 End: 09-06-2015 Follow Up Appt 6 months Annalisa whitley PA-C Work Phone: Start: 09-06-2015 End: 09-06-2015 PF Annalisa Cano PA-C Work Phone: Start: 07-12-2015 End: 08-11-2015 *Hepatic Function Panel Des Castano MD Start: 07-12-2015 End: 08-11-2015 Lipid 1996 panel - Serum or Plasma Des Castano MD Start: 03-06-2015 End: 08-08-2015 *Hepatic Function Panel Des Castano MD Start: 03-06-2015 End: 03-07-2015 Documentation of current medications Des Castano MD Start: 03-06-2015 End: 03-06-2015 Follow Up Appt 6 months Des Castano MD Start: 03-06-2015 End: 08-08-2015 Lipid 1996 panel - Serum or Plasma Des Castano MD Start: 03-06-2015 End: 03-06-2015 MMM Des Castano MD Start: 12-15-2014 End: 01-10-2015 *Hepatic Function Panel Des Castano MD Start: 12-15-2014 End: 01-10-2015 Lipid 1996 panel - Serum or Plasma Des Castano MD Start: 09-13-2014 End: 09-13-2014 *Hepatic Function Panel Des Castano MD Start: 09-13-2014 End: 09-13-2014 Lipid 1996 panel - Serum or Plasma Des Castano MD Start: 09-05-2014 End: 09-06-2014 Documentation of current medications Annalisa Cano PA-C Work Phone: Start: 09-05-2014 End: 09-05-2014 Follow Up Appt 6 months Annalisa whitley PA-C Work Phone: Start: 09-05-2014 End: 09-05-2014 PFM Annalisa Cano PA-C Work Phone: Start: 06-15-2014 End: 06-15-2014 *Hepatic Function Panel Des Castano MD Start: 06-15-2014 End: 06-15-2014 Lipid 1996 panel - Serum or Plasma Des Castano MD Start: 05-03-2014 End: 05-04-2014 *Hepatic Function Panel Des Castano MD Start: 05-03-2014 End: 05-04-2014 Lipid 1996 panel - Serum or Plasma Des Castano MD Start: 03-07-2014 End: 03-22-2014 *Hepatic Function Panel Des Castano MD Start: 03-07-2014 End: 03-07-2014 Follow Up Appt 6 months Des Castano MD Start: 03-07-2014 End: 03-22-2014 Lipid 1996 panel - Serum or Plasma Des Castano MD Start: 03-07-2014 End: 03-07-2014 MMM Des Castano MD Start: 03-07-2014 End: 08-30-2014 Transesophageal echocardiogram (LEAH) Des Castano MD Start: 12-02-2013 End: 12-23-2013 Cardiac Rehab Des Castano MD Start: 12-02-2013 End: 08-30-2014 Cardiovascular stress test using treadmill Des Castano MD Start: 12-02-2013 End: 12-02-2013 Ecg routine ecg w/least 12 lds w/i&r Des Castano MD Start: 12-02-2013 End: 08-30-2014 Echocardiography Des Castano MD Start: 12-02-2013 End: 08-30-2014 Follow Up Appt 3 months Des Castano MD Start: 12-02-2013 End: 08-30-2014 PFM Des Castano MD Plan of Treatment Date Care Activity Detail Author Start: 2034 RSV Vaccine (1 - 1-dose 75+ series) RSV Vaccine (1 - 1-dose 75+ series) [facility] Start: 07-10-2028 Colonoscopy COLONOSCOPY [facility] Start: 07-10-2028 COLORECTAL CANCER SCREENING COLORECTAL CANCER SCREENING [facility] Start: 07-10-2028 Screening for malignant neoplasm of colon [facility] Start: 05-29-2028 [facility] Start: 01-16-2027 Lipid panel Lipid Screening [facility] Start: 01-16-2027 LIPID SCREEN LIPID SCREEN [facility] Start: 01-04-2024 Covid-19 Vaccine ( season) Covid-19 Vaccine () [facility] Start: 01-04-2024 Influenza vaccination Influenza Vaccine (#1) [facility] Start: 08-29-2023 DIABETES SCREEN DIABETES SCREEN [facility] Start: 08-29-2023 Diabetes Screening Diabetes Screening [facility] Start: 05-29-2023 PROSTATE CANCER SCREENING DISCUSSION PROSTATE CANCER SCREENING DISCUSSION [facility] Start: 05-29-2023 Prostate specific antigen measurement Prostate Cancer Screening Discussion [facility] Start: 01-03-2023 Covid-19 Vaccine () Covid-19 Vaccine () [facility] Start: 01-03-2023 Influenza vaccination Influenza Vaccine (#1) [facility] Start: 05-05-2022 Depression Assessment Depression Assessment [facility] Start: 01-03-2022 Influenza vaccination INFLUENZA (#1) [facility] Start: 09-05-2021 ANNUAL PCP TEAM CHRONIC DISEASE VISIT ANNUAL PCP TEAM CHRONIC DISEASE VISIT [facility] Start: 08-28-2021 Hepatitis B surface antibody level LDL CHOLESTEROL [facility] Start: 08-22-2021 COVID-19 VACCINE (5 - Booster for Pfizer series) COVID-19 VACCINE (5 - Booster for Pfizer series) [facility] Start: 05-05-2021 DEPRESSION ASSESSMENT DEPRESSION ASSESSMENT [facility] Start: 2019 RSV Vaccine (1 - 1-dose 60+ series) RSV Vaccine (1 - 1-dose 60+ series) [facility] Start: 09-01-2017 End: 03-06-2017 *Hepatic Function Panel *Hepatic Function Panel [facility] Work Phone: Start: 09-01-2017 End: 03-06-2017 Lipid panel [AGGREGATE] *Lipid Profile CC PCP [facility] Work Phone: Start: 03-17-2017 End: 03-17-2017 Appointment Appointment [facility] Work Phone: Start: 03-10-2017 End: 09-06-2016 *Hepatic Function Panel *Hepatic Function Panel [facility] Work Phone: Start: 03-10-2017 End: 09-06-2016 Lipid panel [AGGREGATE] *Lipid Profile CC PCP [facility] Work Phone: Start: 02-02-2017 End: 03-06-2017 *Hepatic Function Panel *Hepatic Function Panel [facility] Work Phone: Start: 02-02-2017 End: 03-06-2017 Lipid panel [AGGREGATE] *Lipid Profile CC PCP [facility] Work Phone: Start: 09-06-2016 End: 09-06-2016 Follow Up Appt 6 months Follow Up Appt 6 months [facility] Work Phone: Start: 09-06-2016 End: 09-06-2016 PFM PFM [facility] Work Phone: Start: 08-23-2016 End: 09-05-2016 *Hepatic Function Panel *Hepatic Function Panel [facility] Work Phone: Start: 08-23-2016 End: 09-05-2016 Lipid panel [AGGREGATE] *Lipid Profile CC PCP [facility] Work Phone: Start: 03-06-2016 End: 08-27-2016 *Hepatic Function Panel *Hepatic Function Panel [facility] Work Phone: Start: 03-06-2016 End: 03-06-2016 Follow Up Appt 6 months Follow Up Appt 6 months [facility] Work Phone: Start: 03-06-2016 End: 08-27-2016 Lipid panel [AGGREGATE] *Lipid Profile CC PCP [facility] Work Phone: Start: 03-06-2016 End: 03-06-2016 MMM MMM [facility] Work Phone: Start: 02-12-2016 End: 02-28-2016 *Hepatic Function Panel *Hepatic Function Panel [facility] Work Phone: Start: 02-12-2016 End: 02-28-2016 Lipid panel [AGGREGATE] *Lipid Profile CC PCP [facility] Work Phone: Start: 09-06-2015 End: 09-06-2015 Follow Up Appt 6 months Follow Up Appt 6 months [facility] Work Phone: Start: 09-06-2015 End: 09-06-2015 PFM PFM [facility] Work Phone: Start: 07-12-2015 End: 08-11-2015 *Hepatic Function Panel *Hepatic Function Panel [facility] Work Phone: Start: 07-12-2015 End: 08-11-2015 Lipid panel [AGGREGATE] *Lipid Profile CC PCP [facility] Work Phone: Start: 03-06-2015 End: 08-08-2015 *Hepatic Function Panel *Hepatic Function Panel [facility] Work Phone: Start: 03-06-2015 End: 03-06-2015 Follow Up Appt 6 months Follow Up Appt 6 months [facility] Work Phone: Start: 03-06-2015 End: 08-08-2015 Lipid panel [AGGREGATE] *Lipid Profile CC PCP [facility] Work Phone: Start: 03-06-2015 End: 03-06-2015 MMM MMM [facility] Work Phone: Start: 12-15-2014 End: 01-10-2015 *Hepatic Function Panel *Hepatic Function Panel [facility] Work Phone: Start: 12-15-2014 End: 01-10-2015 Lipid panel [AGGREGATE] *Lipid Profile CC PCP [facility] Work Phone: Start: 09-13-2014 End: 09-13-2014 *Hepatic Function Panel *Hepatic Function Panel [facility] Work Phone: Start: 09-13-2014 End: 09-13-2014 Lipid panel [AGGREGATE] *Lipid Profile CC PCP [facility] Work Phone: Start: 09-05-2014 End: 09-05-2014 Follow Up Appt 6 months Follow Up Appt 6 months [facility] Work Phone: Start: 09-05-2014 End: 09-05-2014 PFM PFM [facility] Work Phone: Start: 06-15-2014 End: 06-15-2014 *Hepatic Function Panel *Hepatic Function Panel [facility] Work Phone: Start: 06-15-2014 End: 06-15-2014 Lipid panel [AGGREGATE] *Lipid Profile CC PCP [facility] Work Phone: Start: 05-03-2014 End: 05-04-2014 *Hepatic Function Panel *Hepatic Function Panel [facility] Work Phone: Start: 05-03-2014 End: 05-04-2014 Lipid panel [AGGREGATE] *Lipid Profile CC PCP [facility] Work Phone: Start: 03-07-2014 End: 03-22-2014 *Hepatic Function Panel *Hepatic Function Panel [facility] Work Phone: Start: 03-07-2014 End: 03-07-2014 Follow Up Appt 6 months Follow Up Appt 6 months [facility] Work Phone: Start: 03-07-2014 End: 03-22-2014 Lipid panel [AGGREGATE] *Lipid Profile CC PCP [facility] Work Phone: Start: 03-07-2014 End: 03-07-2014 MMM MMM [facility] Work Phone: Start: 03-07-2014 End: 08-30-2014 Transesophageal echocardiogram (LEAH) Transesophageal echocardiogram (LEAH) [facility] Work Phone: Start: 12-02-2013 End: 12-23-2013 Cardiac Rehab [facility] Phone: Start: 12-02-2013 End: 12-02-2013 Cardiovascular stress test using treadmill Treadmill stress test (no imaging) [facility] Phone: Start: 12-02-2013 End: 12-02-2013 Ecg routine ecg w/least 12 lds w/i&r EKG (In office) [facility] Work Phone: Start: 12-02-2013 End: 12-02-2013 Echocardiography Echocardiogram (complete) [facility] Work Phone: Start: 12-02-2013 End: 08-30-2014 Follow Up Appt 3 months Follow Up Appt 3 months [facility] Work Phone: Start: 12-02-2013 End: 08-30-2014 PFM PFM [facility] Work Phone: Start: 2009 SHINGRIX VACCINE (1 of 2) SHINGRIX VACCINE (1 of 2) [facility] Start: 2004 COLOGUARD (FIT-DNA) COLOGUARD (FIT-DNA) [facility] Start: [address] COLONOGRAPHY [facility] Start: 2004 FECAL OCCULT BLOOD FECAL OCCULT BLOOD [facility] Start: 2004 Screening for malignant neoplasm of colon [facility] Start: 2004 SIGMOIDOSCOPY SIGMOIDOSCOPY [facility] Start: 1977 Anxiety Screening Anxiety Screening [facility] Start: 1977 BP CONTROLLED (<130/80) BP CONTROLLED (<130/80) [facility] Start: 1977 Depression Screening Depression Screening [facility] Start: 1977 HIV SCREENING HIV SCREENING [facility] Start: 1977 HIV screening HIV Screening [facility] Patient Education [facility] Work Phone: Immunizations Immunization Date Immunization Notes Care Provider Fan arellano 08-11-2020 COVID-19 original vaccine, age 12+ yr, monovalent (PFIZER-BIONTECH - PURPLE TOP) Angella Rider [employer] Work Phone: [facility] 07-21-2020 COVID-19 original vaccine, age 12+ yr, monovalent (PFIZER-BIONTECH - PURPLE TOP) Angella Rider [employer]ILD [employer] Work Phone: [facility] 05-29-2018 tetanus toxoid, redu eliud diphtheria toxoid, and acellular pertussis vaccine, adsorbed Angella Rider [employer]ILD [employer] Work Phone: [facility] 05-29-2018 influenza virus vaccine, unspecified formulation Suresh Doshi APRN.CNP Work Phone: [facility] 10-10-2015 tuberculin skin test ; purified protein derivative solution, intradermal Xr [facility] Work Phone: [facility] 02-03-2015 influenza, injectabl e, quadrivalent, contains preservative Angella Rider APRN.CNP Work Phone: [facility] Payers Date Payer Category Payer Unknown [id number] 2018 Unknown [id number] Social History Date Type Detail Facility Start: 04-07-2022 Tobacco smoking stat [facility] Never smoked tobacco [facility] Start: 04-07-2022 Tobacco use and exposure Smokeless tobacco non-user [facility] Start: 04-07-2022 End: 04-20-2023 Alcohol intake Not Asked [facility] Start: 07-10-2018 [facility] Start: 1960 Sex Assigned At Not on file [facility] Start: 03-28-2022 End: 04-07-2022 Exposure to SARS-CoV-2 (event) Not sure [facility] Work Phone: Start: 04-09-2020 End: 04-20-2023 History of Social function [facility] Start: 04-09-2020 End: 04-20-2023 Tobacco use panel [facility] Adult Depression Screening Assessment 0 [facility] Progress note 04-20-2023 Note Date & Type Note Facility 04-20-2023 Note HNO ID: [id number] Author: Suresh Doshi APRN.MAX Service: ? Author Type: Nurse Practitioner Type: Progress Notes Filed: 04/20/2023 10:59 AM Note Text: Subjective HPI Nontoxic-appearing male presents urgent care chief complaint fever cough. States been sick for about a week and a half. New onset fever last 2 to 3 days. Recorded temperature 102.8 today. Did take Tylenol. This is helped. Presents today with increasing weakness. Has not had an appetite. Feels like his chest is clogged. Having a hard time taking deep breath. Increased work of breathing. Denies any chest pain or hemoptysis. No vomiting or abdominal pain. Past medical history prescription medication use allergies reviewed. .Patient presents with: Cough: Chest congestion x1.5 weeks, fever x2 days PAST MEDICAL HISTORY Diagnosis Date Coronary artery disease with hx of myocardial infarct w/o hx of CABG 10/25/2013 HTN (hypertension) Hyperlipidemia DC (myocardial infarction) (HCC) 2013 PAST SURGICAL HISTORY Procedure Laterality Date COLONOSCOPY 1979 COLONOSCOPY FLX DX W/COLLJ SPEC WHEN PFRMD 07/10/2018 Colonoscopy CORONARY ARTERY BYP W/VEIN AND ARTERY GRAFT 4 VEIN 10/25/2013 CABG, five grafts EXTRACTION, ERUPTED TOOTH OR EXPOSED ROOT (ELEVATION AND/OR FORCEPS REMOVAL) HEART SURGERY HX LASIK Bilateral 2000 ALLERGIES Atorvastatin and Lactose MEDICATIONS albuterol HFA (PROVENTIL HFA, VENTOLIN HFA) 90 mcg/actuation inhaler Inhale 2 Puffs as instructed every 4 hours as needed. aspirin, enteric coated (ASPIRIN, ENTERIC COATED) 81 mg EC tablet Take 81 mg by mouth once daily. metoprolol succinate XL, long acting, (TOPROL XL) 50 mg 24 hr tablet Take 50 mg by mouth once daily. clopidogrel (PLAVIX) 75 mg tablet Take 75 mg by mouth once daily. pravastatin (PRAVACHOL) 40 mg tablet Take 40 mg by mouth once daily. FAMILY HISTORY Problem Relation Age of Onset Cancer Mother ovarian Diabetes Maternal Grandmother Diabetes Maternal Grandfather Heart Father Social History Tobacco Use Smoking status: Never Smokeless tobacco: Never Substance Use Topics Drug use: Never BP 127/96 Pulse (!) 134 Temp (!) 38.2 ?C (100.8 ?F) Resp (!) 34 Wt 83.5 kg (184 lb) SpO2 94% BMI 27.37 kg/m? Review of Systems Constitutional: Positive for fever and malaise/fatigue. Negative for chills. HENT: Negative for congestion, ear discharge, ear pain, sinus pain and sore throat. Eyes: Negative for blurred vision, pain, discharge and redness. Respiratory: Positive for cough, sputum production, shortness of breath and wheezing. Negative for hemoptysis and stridor. Cardiovascular: Negative for chest pain. Gastrointestinal: Negative for abdominal pain, diarrhea, nausea and vomiting. Musculoskeletal: Positive for myalgias. Skin: Negative for itching and rash. Neurological: Negative for dizziness and headaches. Objective Physical Exam Constitutional: General: He is not in acute distress. Appearance: He is not toxic-appearing. HENT: Head: Normocephalic. Nose: Nose normal. Eyes: Pupils: Pupils are equal, round, and reactive to light. Cardiovascular: Rate and Rhythm: Tachycardia present. Rhythm irregular. Pulmonary: Effort: Pulmonary effort is normal. No respiratory distress. Breath sounds: Wheezing and rhonchi present. No rales. Musculoskeletal: Cervical back: Normal range of motion. Skin: General: Skin is warm and dry. Neurological: General: No focal deficit present. Mental Status: He is alert. ASSESSMENT/PLAN: 1. Tachycardia - ICD9: 785.0, ICD10: R00.0 (primary diagnosis) 2. Fever, unspecified fever cause - ICD9: 780.60, ICD10: R50.9 Diagnosed with tachycardia fever. Suspicious of lower respiratory tract infection. Patient is tachycardic hypoxic tachypneic and fever. Recommended patient be seen in the ED for further evaluation care. Patient will be seen at [facility]. Suresh Doshi APRN.[facility] History of Present illness Narrative 04-20-2023 Suresh Doshi APRN.[facility] - 04/20/2023 10:47 AM EST Note Date & Type Note Facility 04-20-2023 History of Presen t illness Narrative Subjective HPI Nontoxic-appearing male presents urgent care chief complaint fever cough. States been sick for about a week and a half. New onset fever last 2 to 3 days. Recorded temperature 102.8 today. Did take Tylenol. This is helped. Presents today with increasing weakness. Has not had an appetite. Feels like his chest is clogged. Having a hard time taking deep breath. Increased work of breathing. Denies any chest pain or hemoptysis. No vomiting or abdominal pain. Past medical history prescription medication use allergies reviewed. .Patient presents with: Cough: Chest congestion x1.5 weeks, fever x2 days PAST MEDICAL HISTORY Diagnosis Date Coronary artery disease with hx of myocardial infarct w/o hx of CABG 10/25/2013 HTN (hypertension) Hyperlipidemia DC (myocardial infarction) (HCC) 2013 PAST SURGICAL HISTORY Procedure Laterality Date COLONOSCOPY 1979 COLONOSCOPY FLX DX W/COLLJ SPEC WHEN PFRMD 07/10/2018 Colonoscopy CORONARY ARTERY BYP W/VEIN & ARTERY GRAFT 4 VEIN 10/25/2013 CABG, five grafts EXTRACTION, ERUPTED TOOTH OR EXPOSED ROOT (ELEVATION AND/OR FORCEPS REMOVAL) HEART SURGERY HX LASIK Bilateral 2000 ALLERGIES Atorvastatin and Lactose MEDICATIONS albuterol HFA (PROVENTIL HFA, VENTOLIN HFA) 90 mcg/actuation inhaler Inhale 2 Puffs as instructed every 4 hours as needed. aspirin, enteric coated (ASPIRIN, ENTERIC COATED) 81 mg EC tablet Take 81 mg by mouth once daily. metoprolol succinate XL, long acting, (TOPROL XL) 50 mg 24 hr tablet Take 50 mg by mouth once daily. clopidogrel (PLAVIX) 75 mg tablet Take 75 mg by mouth once daily. pravastatin (PRAVACHOL) 40 mg tablet Take 40 mg by mouth once daily. FAMILY HISTORY Problem Relation Age of Onset Cancer Mother ovarian Diabetes Maternal Grandmother Diabetes Maternal Grandfather Heart Father Social History Tobacco Use Smoking status: Never Smokeless tobacco: Never Substance Use Topics Drug use: Never BP 127/96 Pulse (!) 134 Temp (!) 38.2 C (100.8 F) Resp (!) 34 Wt 83.5 kg (184 lb) SpO2 94% BMI 27.37 kg/m Review of Systems Constitutional: Positive for fever and malaise/fatigue. Negative for chills. HENT: Negative for congestion, ear discharge, ear pain, sinus pain and sore throat. Eyes: Negative for blurred vision, pain, discharge and redness. Respiratory: Positive for cough, sputum production, shortness of breath and wheezing. Negative for hemoptysis and stridor. Cardiovascular: Negative for chest pain. Gastrointestinal: Negative for abdominal pain, diarrhea, nausea and vomiting. Musculoskeletal: Positive for myalgias. Skin: Negative for itching and rash. Neurological: Negative for dizziness and headaches. Objective Physical Exam Constitutional: General: He is not in acute distress. Appearance: He is not toxic-appearing. HENT: Head: Normocephalic. Nose: Nose normal. Eyes: Pupils: Pupils are equal, round, and reactive to light. Cardiovascular: Rate and Rhythm: Tachycardia present. Rhythm irregular. Pulmonary: Effort: Pulmonary effort is normal. No respiratory distress. Breath sounds: Wheezing and rhonchi present. No rales. Musculoskeletal: Cervical back: Normal range of motion. Skin: General: Skin is warm and dry. Neurological: General: No focal deficit present. Mental Status: He is alert. ASSESSMENT/PLAN: 1. Tachycardia - ICD9: 785.0, ICD10: R00.0 (primary diagnosis) 2. Fever, unspecified fever cause - ICD9: 780.60, ICD10: R50.9 Diagnosed with tachycardia fever. Suspicious of lower respiratory tract infection. Patient is tachycardic hypoxic tachypneic and fever. Recommended patient be seen in the ED for further evaluation care. Patient will be seen at [facility]. Suresh Doshi APRN.[facility] documented in this encounter [facility] Note 04-08-2022 Telephone Encounter - Angella Rider APRN.CNP - 04/08/2022 9:46 AM EST Note Date & Type Note Facility 04-08-2022 Miscellaneous Notes Formattin g of this note might be different from the original. Patient identified by name and date of . I advised patient of the negative chest xray result. He states he feels much better today after starting the medication yesterday. Angella Rider APRN.[employer] documented in this encounter [facility] Evaluation note Note Date & Type Note Facility Evaluation note Diagnosis Tachycardia- Primary Tachycardia, unspecified Fever, unspecified fever cause documented in this encounter [facility] Evaluation note Note Date & Type Note Facility Evaluation note Diagnosis Lower respiratory tract infection Other diseases of respiratory system, not elsewhere classified documented in this encounter [facility] Summary Purpose Family History No Family History Records Found Advance Directives No Advanced Directives Records Found Additional Source Comments Source Comments (unrecognize d section and content) In the event this informatio n is protected by the Federal Confidentiality of Alcohol and Drug Abuse Patient Records regulations: The Federal rules restrict any use of the information to criminally investigate or prosecute any alcohol or drug abuse patient.[facility] the event this information is protected by the [facility] Confidentiality of Alcohol and Drug Abuse Patient Records regulations: The Federal rules restrict any use of the information to criminally investigate or prosecute any alcohol or drug abuse patient.[facility] the event this information is protected by the Federal Confidentiality of Alcohol and Drug Abuse Patient Records regulations: The Federal rules restrict any use of the information to criminally investigate or prosecute any alcohol or drug abuse patient.[facility] Reason for Visit (unrecogniz ed section and content) Reason Comments Results Reason Comments Cough Chest congestion x1. 5 weeks, fever x2 days Care Teams (unrecognized sec tion and content) [employer] Relationship Specialty Start Date End Date Logan Short MD [address] [place] [address] PCP - General Family Medicine 02/03/15 [employer] Relationship Specialty Start Date End Date Logan Short MD [address] [place] [address] PCP - General Family Medicine 02/03/15 [employer] Relationship Specialty Start Date End Date Loagn Short MD [address] [place] [address] PCP - General Family Medicine 02/03/15 11/18/23 (unrecognized sect ion and content) No Status Records Found INFORMATION SOURCE (unrecogn ized section and content) DATE CREATED AUTHOR 04/21/2023 [facility] FOR RECORDS PERTAINING TO PATIENTS WHO ARE OR HAVE BEEN ENROLLED IN A CHEMICAL DEPENDENCY/SUBSTANCEABUSE PROGRAM, SOME INFORMATION MAY BE OMITTED. This clinical summary was aggregated from multiple sources. Caution should be exercised in using it in the provision of clinical care. This summary normalizes information from multiple sources, and as a consequence, information in this document may materially change the coding, format and clinical context of patient data. In addition, data may be omitted in some cases. CLINICAL DECISIONS SHOULD BE BASED ON THE PRIMARY CLINICAL RECORDS. [employer] provides no warranty or guarantee of the accuracy or completeness of information in this document.
[2024-03-02 08:08] LABS: AST(SGOT) 18 U/L (15-37); Alanine Aminotransfer ALT/SGPT 26 U/L (16-61); Albumin, Serum 3.9 g/dL (3.2-5.0); Alkaline Phosphatase 74 U/L (45-117); Bilirubin, Direct 0.32 mg/dL (0.00-0.30); Cholesterol 183 mg/dL (200); Globulin 3.5 g/dL (2.2-4.2); High Density Lipoprotein 56 mg/dL; Protein, Total 7.4 g/dL (6.4-8.2); Triglycerides 151 mg/dL; Very Low Density Lipoprotein 30 mg/dL (5-40)
== END | disposition home or self-care (01) ==
LOC: LAB 07:31
PROVIDERS: PCP Family Medicine; Referring Provider Nurse Practitioner Gerontology; Visit Provider Nurse Practitioner Gerontology
DX: I25.10 Atherosclerotic heart disease of native coronary artery without angina pectoris (principal); E78.5 Hyperlipidemia, unspecified
CPT/HCPCS: 36415; 80061; 80076

== ENCOUNTER → 2024-05-17 | Outpatient (CLI) | payer OTHER, SELFPAY ==
--- NOTE | 2024-05-17 10:06 | STRESSREP ---
Stress Test Report Exercise myocardial perfusion stress test. 64-year-old man with a history of coronary disease Stress protocol: Resting EKG demonstrates normal sinus rhythm with a rate of 70 bpm bpm resting blood pressure is 142/76 mmHg. The patient exercised according to the regular Luis [facility] protocol for a total duration of 7 minutes attaining a maximum heart rate of 162 bpm which was 104% of maximum predicted heart rate; the maximum workload was 10.1 metabolic equivalents. At rest there were no ST or T wave changes noted to suggest ischemia and at peak exercise upsloping ST changes only were noted which did not meet the criteria for ischemia. No clinical angina was noted the test was terminated due to the target heart rate being achieved/fatigue. The peak blood pressure was 198/82 mmHg. Rate-pressure product was 27,200. Myocardial perfusion protocol. 11.0 mCi of technetium 99m sestamibi was injected at rest. The patient exercised according to regular Luis F protocol for total duration of 7 minutes and at peak exercise 36 mCi of technetium 99m sestamibi was injected stress images were obtained stress and rest images were reconstructed in comparing the short axis vertical long and horizontal long axis. Gated images were also obtained. Perfusion SPECT analysis: Review of the stress images demonstrate normal uptake of tracer noted in all areas of the myocardium. The resting images similarly demonstrate normal uptake of tracer noted in all areas of the myocardium. No areas of reversibility are noted to suggest ischemia no previous infarct was noted. Gated SPECT analysis: The gated ejection fraction is 60%. Conclusion: Normal exercise myocardial perfusion stress test at a high workload Preserved ejection fraction.
== END | disposition home or self-care (01) ==
PROVIDERS: PCP Family Medicine; Referring Provider Nurse Practitioner Gerontology; Visit Provider Nurse Practitioner Gerontology
DX: I25.10 Atherosclerotic heart disease of native coronary artery without angina pectoris (principal); Z95.1 Presence of aortocoronary bypass graft
CPT/HCPCS: 78452; 93017; A9500; A4216

== ENCOUNTER → 2025-03-07 | Outpatient (CLI) | payer MEDICARE, SELFPAY ==
[2025-03-07 10:00] LABS: AST(SGOT) 37 U/L (<=37); Alanine Aminotransfer ALT/SGPT 40 U/L (<=46); Albumin, Serum 4.3 g/dL (3.4-4.8); Alkaline Phosphatase 71 U/L (40-129); Bilirubin, Direct 0.40 mg/dL (0.00-0.30); Cholesterol 188 mg/dL (<=200); Globulin 3.2 g/dL (2.2-4.2); Low Density Lipoprotein Calc. 112 mg/dL; Triglycerides 195 mg/dL; Very Low Density Lipoprotein 39 mg/dL (5-40); cholesterol:hdl ratio screen 4.48
== END | disposition home or self-care (01) ==
LOC: LAB 08:15
PROVIDERS: PCP Family Medicine; Referring Provider Nurse Practitioner Gerontology; Visit Provider Nurse Practitioner Gerontology
DX: E78.5 Hyperlipidemia, unspecified (principal)
CPT/HCPCS: 36415; 80061; 80076